=== PATIENT | male | born 1930 | race Caucasian/White ===

== ENCOUNTER 2016-10-13 07:13 | Outpatient (CLI) | payer MEDICARE ==
[2016-10-13 07:59] LABS: #Basophils 0.1 thou/uL (0.0-0.2); #Eosinphils 0.1 thou/uL (0.0-0.7); #Lymphocytes 1.4 thou/uL (1.20-3.40); #Monocytes 0.5 thou/uL (0.11-0.59); %Basophils 1.5 % (0.0-1.0); %Eosinophils 1.8 % (0.0-10.0); %Lymphocytes 23.1 % (21.0-51.0); %Monocytes 7.8 % (0.0-10.0); %Neutrophils 65.9 % (42.0-75.0); Hemoglobin 13.8 g/dL (14.0-18.0); Mean Corpuscular HGB CONC 33.6 g/dL (32.0-36.0); Mean Corpuscular Hemoglobin 28.5 pg (27.0-31.0); Mean Corpuscular Volume 84.8 fl (80.0-94.0); Mean Platelet Volume 7.9 fL (7.4-10.4); Platelet Count 217 thou/uL (130-400); RBC Distribution Width 13.9 % (11.5-14.5); Red Blood Cell (RBC) Count 4.83 mill/uL (4.70-6.10)
[2016-10-13 09:00] LABS: Hemoglobin A1c 5.9 % (4.0-6.0)
[2016-10-13 09:14] LABS: ALT (SGPT) 13 U/L (0-55); AST (SGOT) 17 U/L (5-34); Albumin 3.9 g/dL (3.4-4.8); Alkaline Phosphatase 82 U/L (40-150); Anion Gap 16 mmol/L (10-20); BUN (Urea Nitrogen) 24 mg/dL (8.4-25.7); Bilirubin, Direct 0.4 mg/dL (0.1-0.3); Calc. Creatinine Clearance 0 mL/min (70-130); Calcium 9.2 mg/dL (7.8-10.44); Carbon Dioxide 28 mmol/L (23-31); Cardiac Risk 2.8 (Less than 4.5); Chloride 101 mmol/L (98-107); Cholesterol 111 mg/dL (< 200 Desired); Estimated GFR-MDRD 50; Glucose 118 mg/dL (83-110); HDL Cholesterol 39 mg/dL (>60 Neg Risk); LDL Cholesterol, Calculated 50 mg/dL; Potassium 3.7 mmol/L (3.5-5.1); Protein, Total 6.7 g/dL (5.8-8.1); Sodium 141 mmol/L (136-145); Triglycerides 108 mg/dL (Less than 150)
[2016-10-13 18:35] LABS: Creatinine, Urine 47.15 mg/dL (63-166); Microalbumin Urine 38.8 mg/dL (0.5-50.0); Microalbumin/Creat Ratio 822.9 mg/g (Less than 30)
== END 2016-10-13 07:14 ==
LOC: MADLABBHPM 07:13
PROVIDERS: ATTEND Family Medicine
DX: E78.5 Hyperlipidemia, unspecified (principal); E11.22 Type 2 diabetes mellitus with diabetic chronic kidney disease; N18.9 Chronic kidney disease, unspecified
CPT/HCPCS: 36415; 80048; 80061; 80076; 82043; 82570; 83036; 85025

== ENCOUNTER 2017-01-07 08:24 | Outpatient (CLI) | payer MEDICARE ==
[2017-01-07 08:57] LABS: Hemoglobin A1c 5.9 % (4.0-6.0)
[2017-01-07 09:00] LABS: #Basophils 0.1 thou/uL (0.0-0.2); #Eosinphils 0.2 thou/uL (0.0-0.7); #Lymphocytes 1.6 thou/uL (1.20-3.40); #Monocytes 0.5 thou/uL (0.11-0.59); #Neutrophils 4.9 thou/uL (1.40-6.50); %Basophils 1.3 % (0.0-1.0); %Eosinophils 2.4 % (0.0-10.0); %Lymphocytes 21.7 % (21.0-51.0); %Monocytes 6.6 % (0.0-10.0); %Neutrophils 67.9 % (42.0-75.0); Hemoglobin 13.5 g/dL (14.0-18.0); Mean Corpuscular HGB CONC 32.8 g/dL (32.0-36.0); Mean Corpuscular Hemoglobin 28.2 pg (27.0-31.0); Mean Platelet Volume 7.5 fL (7.4-10.4); Platelet Count 192 thou/uL (130-400); Red Blood Cell (RBC) Count 4.79 mill/uL (4.70-6.10); White Blood Cell (WBC) Count 7.2 thou/uL (4.8-10.8)
[2017-01-07 09:36] LABS: ALT (SGPT) 13 U/L (0-55); AST (SGOT) 15 U/L (5-34); Albumin 3.9 g/dL (3.4-4.8); Alkaline Phosphatase 84 U/L (40-150); Anion Gap 15 mmol/L (10-20); BUN (Urea Nitrogen) 21 mg/dL (8.4-25.7); Bilirubin, Direct 0.4 mg/dL (0.1-0.3); Bilirubin, Total 1.1 mg/dL (0.2-1.2); Calc. Creatinine Clearance 0 mL/min (70-130); Carbon Dioxide 24 mmol/L (23-31); Cardiac Risk 2.6 (Less than 4.5); Chloride 105 mmol/L (98-107); Cholesterol 97 mg/dL (< 200 Desired); Estimated GFR-MDRD 46; Glucose 99 mg/dL (83-110); HDL Cholesterol 38 mg/dL (>60 Neg Risk); LDL Cholesterol, Calculated 41 mg/dL; Potassium 3.5 mmol/L (3.5-5.1); Protein, Total 6.6 g/dL (5.8-8.1); Sodium 140 mmol/L (136-145); Triglycerides 90 mg/dL (Less than 150)
== END 2017-01-07 08:25 ==
LOC: MADLABBHPM 08:24
PROVIDERS: ATTEND Family Medicine
DX: E78.5 Hyperlipidemia, unspecified (principal); E03.9 Hypothyroidism, unspecified; E11.9 Type 2 diabetes mellitus without complications; I25.10 Atherosclerotic heart disease of native coronary artery without angina pectoris
CPT/HCPCS: 36415; 80048; 80061; 80076; 83036; 84443; 85025

== ENCOUNTER 2017-04-08 08:49 | Outpatient (CLI) | payer MEDICARE ==
[2017-04-08 14:19] LABS: Hemoglobin 13.5 g/dL (14.0-18.0); Mean Corpuscular HGB CONC 32.4 g/dL (32.0-36.0); Mean Corpuscular Hemoglobin 28.4 pg (27.0-31.0); Mean Corpuscular Volume 87.6 fL (80.0-94.0); Platelet Count 210 thou/uL (130-400); RBC Distribution Width 13.4 % (11.5-14.5); Red Blood Cell (RBC) Count 4.75 mill/uL (4.70-6.10); White Blood Cell (WBC) Count 7.5 thou/uL (4.8-10.8)
[2017-04-08 14:20] LABS: %Eosinophils 1.8 % (0.0-10.0); %Lymphocytes 21.3 % (21.0-51.0); %Monocytes 6.9 % (0.0-10.0); %Neutrophils 68.9 % (42.0-75.0); Mean Platelet Volume 7.9 fL (7.4-10.4)
[2017-04-08 14:21] LABS: %Basophils 1.2 % (0.0-1.0)
[2017-04-08 14:22] LABS: Hemoglobin A1c 5.9 % (4.0-6.0)
[2017-04-08 14:23] LABS: Anion Gap 14 mmol/L (10-20); BUN (Urea Nitrogen) 22 mg/dL (8.4-25.7); Carbon Dioxide 26 mmol/L (23-31); Chloride 104 mmol/L (98-107); Potassium 3.7 mmol/L (3.5-5.1); Sodium 140 mmol/L (136-145)
[2017-04-08 14:24] LABS: Albumin 3.8 g/dL (3.4-4.8); Bilirubin, Direct 0.4 mg/dL (0.1-0.3); Calc. Creatinine Clearance 0 mL/min (70-130); Calcium 9.2 mg/dL (7.8-10.44); Estimated GFR-MDRD 41; Glucose 118 mg/dL (83-110)
[2017-04-08 14:25] LABS: Alkaline Phosphatase 84 U/L (40-150); Cholesterol 110 mg/dL (< 200 Desired)
[2017-04-08 14:26] LABS: ALT (SGPT) 13 U/L (8-55); AST (SGOT) 16 U/L (5-34); Cardiac Risk 3.1 (Less than 4.5); HDL Cholesterol 35 mg/dL (>60 Neg Risk); LDL Cholesterol, Calculated 52 mg/dL; Triglycerides 113 mg/dL (Less than 150)
== END 2017-04-08 08:50 | disposition home or self-care (01) ==
LOC: MADLABBHPM 08:49
PROVIDERS: ATTEND Family Medicine
DX: E11.9 Type 2 diabetes mellitus without complications (principal); E78.5 Hyperlipidemia, unspecified
CPT/HCPCS: 36415; 80048; 80061; 80076; 83036; 85025

== ENCOUNTER 2017-04-16 14:38 | Outpatient (CLI) | payer MEDICARE ==
[2017-04-17 17:00] LABS: Iron 49 ug/dL (65-175); Iron Binding Capacity, Total 264 mcg/dL (261-462)
== END 2017-04-16 14:39 | disposition home or self-care (01) ==
LOC: MADLABBHPM 14:38
PROVIDERS: ATTEND Family Medicine
DX: Z83.49 Family history of other endocrine, nutritional and metabolic diseases (principal)
CPT/HCPCS: 36415; 82728; 83540; 83550

== ENCOUNTER 2018-03-29 14:10 | Inpatient (IN) | payer MEDICARE ==
[2018-03-29] MEDS ORDERED: Acetaminophen 325 MG TAB PO PRN (17:37)
[2018-03-29] MEDS ORDERED: HumaLOG 300 UNITS/3 ML VIAL SC PRN (17:44)
[2018-03-29] MEDS ORDERED: Dextrose 50% Abboject 50 ML SYRINGE IVP PRN (18:03)
[2018-03-29] MEDS ORDERED: Dextrose 5% in Water 1,000 ML IV PRN (18:03)
[2018-03-29] MEDS: Carbidopa/Levodopa 25-100 mg Tablet PO SCH (20:52)
[2018-03-29] MEDS: hydrALAZINE 25 MG TAB PO SCH (20:53)
[2018-03-29] MEDS: Isosorbide Mononitrate 20 MG TAB PO SCH (20:54)
[2018-03-29] MEDS: Carvedilol 6.25 MG TAB PO SCH (20:55)
[2018-03-29] MEDS: Simvastatin 20 MG TAB PO SCH (20:55)
[2018-03-29] MEDS: cloNIDine 0.1 MG TAB PO SCH (20:56)
--- NOTE | 2018-03-30 00:52 | HP ---
DATE OF ADMISSION: Admitted to [facility] to extended care on 03/29/2018. HISTORY OF PRESENT ILLNESS: The patient is an 88-year-old white male, who has a history of hypertens ion, coronary artery disease, diastolic dysfunction, Parkinson's disease, and dementia. Also, he has hypothyroidism; diabetes, type 2; and chronic kidney disease, stage 3. Patient resides at home with his . He nearly is ambulatory for short distances and is able to feed himself, requires some as sistance with dressing and bathing. The patient was hospitalized at [facility] from 03/22 until 03/29/2018 for acute on chronic diastolic congestive heart failure. He had evidence of s ome demand ischemia, but no evidence of acute myocardial infarction. He was treated with diuresis wi th an admission weight of 167, dropped into a discharge weight of 155. He was placed on 2 grams sodi um salt restricted diet and fluid intake less than 1-1/2 liters per day. While in the hospital, he u nderwent an echocardiogram, which showed an ejection fraction 45%-50% with posterior hypokinesis. Hi s inferior vena cava was dilated showing evidence of overload. He had diastolic dysfunction. He had [id number] mitral regurgitation, mild enlargement of the right atrium, [id number] aortic regurgitation, severe tricuspid regurgitation. While in the hospital, his code status was changed t o a full code to DNR. He did improve, but he was left extremely weak, as he has been up very limited , and he was not allowed up without assistance due to a fall risk. The patient was transferred to [facility] to extended care for physical therapy and occupational therapy to try to help his decl ine in functional capabilities with this recent acute hospitalization to help improve his functional capabilities. The patient was not able to give any details of the admission due to his advanced dementia. His , who has been staying with him w as a very good historian and was able to review with me what had occurred. She said he was admitted to the hospital acutely short of breath with swelling up to the hips. This has improved and his lisa thing has been better. The patient thinks he is doing good. He is just weak. PAST HISTORY: Hospitalized at [facility] from 03/22/2018 to 03/29/2018 for acute on chron ic diastolic congestive heart failure with restrictive filling pattern, treated with diuresis, fluid restriction, and salt-restricted diet. The patient has coronary artery disease, for which he underwe nt a 2-vessel coronary artery bypass in 2012. He has paroxysmal atrial fibrillation; hypertension; h ypothyroidism; hyperlipidemia; diabetes, type 2; chronic kidney disease, stage 3; chronic diastolic h eart failure; Alzheimer's dementia with some behavioral issues. The patient also had a skin cancer r emoved from the right frontal area of his scalp, but was healing by secondary intention, and it was r ecently reddened, for which he has been taking cephalexin. The patient has also a history of diverti culosis. He has had polyps removed in 2010. He has diverticulosis. PRESENT MEDICINES: Hydralazine 25 mg 3 tablets t.i.d., amlodipine 5 mg daily, aspirin 81 mg daily, S inemet 25/100 one q.i.d., Coreg 6.25 mg b.i.d., clonidine 0.25 mg b.i.d., furosemide 40 mg daily, Hum alog by sliding scale before meals, Isordil 40 mg b.i.d., levothyroxine 100 mcg daily, KCl 10 mEq amol ly, Simvastatin 10 mg at bedtime. ALLERGIES: CELEXA; METFORMIN causes diarrhea; ARICEPT, diarrhea; NAMENDA, loss of appetite and behav ioral problems, and EXELON, diarrhea. REVIEW OF SYSTEMS: Constitutional: Patient has lost about 7 pounds over the week from diuresis with removal of much of the edema in the lower extremities. Patient has had no fever. Pulmonary: Patie rickey does not have any more trouble with his breathing. Cardiovascular: No chest pain. Gastrointesti nal: Appetite has been good. He has had no nausea or vomiting. No change in his bowel habits. Gen itourinary: No dysuria. Extremities: The swelling in the legs are better, but not resolved. Neuro psychiatric: The patient has very poor short-term memory, had problems with orientation at times, ca n be a little disinhibited, and a little agitated, but right now this is pretty stable. HABITS: Alcohol none. Tobacco none. SOCIAL HISTORY: Patient lives with his , who assists him with his ADLs and instrumental ADLs. CODE STATUS: DNR. PHYSICAL EXAMINATION: GENERAL: Shows an 88-year-old white male, who is sitting up in a bedside chair. He is alert, smilin g, looks very comfortable. He is wearing knee-high support hose. He appears in no distress. VITAL SIGNS: Shows a temperature of 96.3, O2 saturation 97% on room air, blood pressure 180/87, hear t rate 64, respirations 21, weight 166.5. HEAD: Normocephalic. Over the scalp on the right frontal area, there is an oval area that is about 1.5 x 1 cm. There is a little slight surrounding redness that is healing by secondary intention, for which he is on cephalexin. EARS: TMs are clear. EYES: Pupils are equal, round, and reactive. Sclerae nonicteric. Extraocular musculature is intact . NOSE: Normal. MOUTH AND THROAT: Normal. NECK: Carotids were equal and strong, no bruits. LUNGS: Clear. HEART: Regular rate. Could not hear any murmurs. ABDOMEN: Soft, no organomegaly, nor areas of tenderness. LOWER EXTREMITIES: Patient has 1+ edema in the lower legs. NEUROLOGIC: Patient is alert, knows he is in the hospital, and recognizes me. He does not understan d his situation. The patient has some generalized weakness, but no focal weakness. IMPRESSION: 1. Generalized weakness and deconditioning. A. Secondary to the recent acute hospitalization for congestive heart failure. B. Complicated by gait abnormality from the Parkinson's. C. Increased fall risk. 2. Hospitalized at [facility] from 03/22/2018 until 03/29/2018 for acute on chronic diast olic congestive heart failure. 3. Diastolic congestive heart failure. A. Complicated by recent acute on chronic congestive failure, requiring hospitalization that has imp roved. B. Echocardiogram shows ejection fraction of 45%-50% with severe tricuspid regurgitation and moderat e mitral regurgitation and some restrictive filling with diastolic dysfunction. 4. Chronic right heart failure. A. Complicated by severe tricuspid regurgitation and peripheral edema that has improved. 5. Diabetes, type 2. 6. Hypertension. 7. Coronary artery disease, status post coronary artery bypass x2, 2013. 8. Parkinson's disease. 9. Alzheimer disease. 10. Chronic kidney disease, stage 3. 11. Chronic normocytic anemia. 12. Hypothyroidism. 13. Severe hypertension. 14. Hyperlipidemia. 15. Code status: DNR. PLAN: The patient has been admitted to extended care in an effort to try to improve his weakness and deconditioning. We will continue his fluid restriction and low-sodium diet and his same medication. We will continue the DVT prophylaxis. See orders.
[2018-03-30] MEDS: Levothyroxine Sodium 100 MCG TAB PO SCH (05:41)
[2018-03-30 06:06] LABS: #Basophils 0.1 thou/uL (0.0-0.2); #Eosinphils 0.1 thou/uL (0.0-0.7); #Lymphocytes 1.5 thou/uL (1.20-3.40); #Monocytes 0.6 thou/uL (0.11-0.59); #Neutrophils 4.3 thou/uL (1.40-6.50); %Basophils 1.1 % (0.0-1.0); %Eosinophils 1.4 % (0.0-10.0); %Lymphocytes 22.8 % (21.0-51.0); %Monocytes 9.7 % (0.0-10.0); %Neutrophils 65.1 % (42.0-75.0); Hemoglobin 10.2 g/dL (14.0-18.0); Mean Corpuscular HGB CONC 33.1 g/dL (32.0-36.0); Mean Corpuscular Hemoglobin 27.4 pg (27.0-31.0); Mean Corpuscular Volume 82.7 fL (78.0-98.0); Mean Platelet Volume 6.3 fL (7.4-10.4); Platelet Count 191 thou/uL (130-400); RBC Distribution Width 14.2 % (11.5-14.5); Red Blood Cell (RBC) Count 3.74 mill/uL (4.70-6.10); White Blood Cell (WBC) Count 6.7 thou/uL (4.8-10.8)
[2018-03-30 06:14] LABS: AST (SGOT) 17 U/L (5-34); Albumin 3.3 g/dL (3.4-4.8); Alkaline Phosphatase 59 U/L (40-150); Anion Gap 16 mmol/L (10-20); BUN (Urea Nitrogen) 36 mg/dL (8.4-25.7); Bilirubin, Total 1.2 mg/dL (0.2-1.2); Calc. Creatinine Clearance 26 mL/min (70-130); Calcium 8.5 mg/dL (7.8-10.44); Carbon Dioxide 23 mmol/L (23-31); Chloride 103 mmol/L (98-107); Estimated GFR-MDRD 32; Glucose 118 mg/dL (83-110); Potassium 3.9 mmol/L (3.5-5.1); Sodium 138 mmol/L (136-145)
[2018-03-30 06:18] LABS: ALT (SGPT) Less than 7 U/L (8-55); Globulin 2.5 g/dL (2.4-3.5); Protein, Total 5.8 g/dL (5.8-8.1)
[2018-03-30] MEDS: hydrALAZINE 25 MG TAB PO SCH ×3 (08:22→20:57)
[2018-03-30] MEDS: Carvedilol 6.25 MG TAB PO SCH ×2 (08:24→20:58)
[2018-03-30] MEDS: Potassium Chloride 20 MEQ TAB PO SCH (08:24)
[2018-03-30] MEDS: Amlodipine 5 MG TAB PO SCH (08:24)
[2018-03-30] MEDS: Aspirin 81 mg Enteric Coated Tablet PO SCH (08:24)
[2018-03-30] MEDS: Carbidopa/Levodopa 25-100 mg Tablet PO SCH ×4 (08:24→20:57)
[2018-03-30] MEDS: Furosemide 40 MG TAB PO SCH (08:24)
[2018-03-30] MEDS: Isosorbide Mononitrate 20 MG TAB PO SCH ×2 (08:24→20:59)
[2018-03-30] MEDS: cloNIDine 0.1 MG TAB PO SCH ×2 (08:25→20:59)
[2018-03-30] MEDS: Enoxaparin Sodium 40 MG/0.4 ML SYRINGE SC SCH (08:30)
[2018-03-30] MEDS: Cephalexin 500 MG CAP PO SCH ×2 (08:33→20:57)
[2018-03-30] MEDS: HumaLOG 300 UNITS/3 ML VIAL SC PRN (11:26)
[2018-03-30] MEDS ORDERED: Lantiseptic Ointment 130 GM JAR TOP PRN (12:32)
[2018-03-30 12:34] LABS: Hemoglobin A1c 6.2 % (4.0-6.0)
[2018-03-30] MEDS: Loperamide HCl 2 MG CAP PO PRN (12:48)
--- NOTE | 2018-03-30 17:05 | PRG ---
DATE OF SERVICE: 03/30/2018 SUBJECTIVE: The patient's who is staying with her said that he had a good night. When he would roll over in bed he would set off the bed alarm, but he usually settled down pretty quickly. She said without this he may try to get up on his own. The patient's said the spot on his hea d where the skin cancers were removed looks better. He has been placed on cephalexin 500 mg twice a day, that was started on the and was supposed to go for 10 days. This will need to be reordered for an additional 5 days. Overall, she thinks it looks better. OBJECTIVE: The patient is sitting on the edge of the bed. He, after the visit, got up and walked wi th a short little shuffling gait with the use of his walker with standby assistance from the therapis t. This morning his vital signs show a temperature of 98.5, pulse 68, respirations 22, O2 sat 92% on room air, blood pressure has improved at 157/75 this morning. He is alert and appears in no distres s. His skin on the right frontal area of his scalp, there is the oval area where the skin cancer was removed. The base is dry and is kind of yellowish. There is very slight redness around the wound, but overall it looks better and dryer. His lungs were clear. Heart, regular rate. Lower extremitie s; no edema. His lab shows an H&H of 10.2 and 30.9, white cell count 6700 with 65% segs, 23% lymphocytes, platelet count of 191,000. Sodium 138, potassium 3.9, BUN 36, creatinine 2.01. GFR 32, glucose 118, albumin 3.3. TSH is 2.43. FBS this morning 118. ASSESSMENT: 1. Generalized weakness and deconditioning. A. Secondary to the recent acute hospitalization for congestive heart failure. B. Complicated by gait abnormality from the Parkinson's. C. Increased fall risk. D. Improved as of 03/30/2018. 2. Hospitalized at [facility] from 03/22/2018 until 03/29/2018 for acute on chronic diast olic congestive heart failure. 3. Diastolic congestive heart failure. A. Complicated by recent acute on chronic congestive failure, requiring hospitalization that has imp roved. B. Echocardiogram shows ejection fraction of 45%-50% with severe tricuspid regurgitation and moderat e mitral regurgitation and some restrictive filling with diastolic dysfunction. C. No evidence of acute congestive heart failure as of 03/30/2018. 4. Chronic right heart failure. A. Complicated by severe tricuspid regurgitation and peripheral edema that has improved. B. Peripheral edema improved as of 03/30/2018. 5. Diabetes, type 2. A. Controlled as of 03/30/2018. 6. Hypertension. A. Improved as of 03/30/2018. 7. Coronary artery disease, status post coronary artery bypass x2, 2012. 8. Parkinson's disease. 9. Alzheimer disease. 10. Chronic kidney disease, stage 3. A. GFR is stable at 33 as of 03/30/2018. 11. Chronic normocytic anemia. A. Hemoglobin 10.2 as of 03/30/2018. 12. Hypothyroidism. 13. Severe hypertension. 14. Hyperlipidemia. 15. Code status: DNR. 16. Status post excision of a skin cancer on the right frontal area of the scalp in early 02/28/2018 . A. Gradually healing. Recently complicated by infection that is improved. PLAN: Continue present care. Continue physical therapy. Will restart his cephalexin 500 mg b.i.d. for 5 days.
[2018-03-30] MEDS: Simvastatin 20 MG TAB PO SCH (20:58)
[2018-03-31] MEDS: Levothyroxine Sodium 100 MCG TAB PO SCH (05:25)
[2018-03-31] MEDS: Enoxaparin Sodium 40 MG/0.4 ML SYRINGE SC SCH (08:55)
[2018-03-31] MEDS: Furosemide 40 MG TAB PO SCH (08:56)
[2018-03-31] MEDS: hydrALAZINE 25 MG TAB PO SCH ×3 (08:56→20:38)
[2018-03-31] MEDS: Carbidopa/Levodopa 25-100 mg Tablet PO SCH ×4 (08:56→20:40)
[2018-03-31] MEDS: Aspirin 81 mg Enteric Coated Tablet PO SCH (08:56)
[2018-03-31] MEDS: Cephalexin 500 MG CAP PO SCH ×2 (08:57→20:42)
[2018-03-31] MEDS: Carvedilol 6.25 MG TAB PO SCH ×2 (08:57→20:47)
[2018-03-31] MEDS: cloNIDine 0.1 MG TAB PO SCH ×2 (08:57→20:41)
[2018-03-31] MEDS: Isosorbide Mononitrate 20 MG TAB PO SCH ×2 (08:57→20:41)
[2018-03-31] MEDS: Potassium Chloride 20 MEQ TAB PO SCH (08:57)
[2018-03-31] MEDS: Amlodipine 5 MG TAB PO SCH (08:58)
[2018-03-31] MEDS: HumaLOG 300 UNITS/3 ML VIAL SC PRN ×2 (11:35→17:19)
--- NOTE | 2018-03-31 15:26 | PRG ---
DATE OF SERVICE: 03/31/2018 SUBJECTIVE: The patient had a good night. He did well with physical therapy yesterday. The patient had been on a mechanical soft diet while at [facility]. He was switched to this. His wi fe says he does better on this because he has such poor dentition. He has eaten a good breakfast thi s morning. The patient has had no shortness of breath. He had a little loose stools yesterday for w hich he took Imodium which he uses at home. OBJECTIVE: The patient is sitting up in a bedside chair eating breakfast. He is alert, appears very comfortable and in no distress. His vital signs shows a temperature 97.6, pulse 61, respirations 22 , O2 sat 96% on room air, blood pressure 152/70. The skin over the right frontal area of the scalp, the area where the skin cancer had been removed is healing by secondary intention, looks dry and no s urrounding redness, gradually improving. His lungs were clear. Heart, regular rate. Extremities gonzales ve trace edema. His weight was 165, weight the day before was 157 scales have been rezeroed. We will see how tomorro w's look. It does not look like he has gained that amount of weight in a day, although he does have just a trace amount of edema. ASSESSMENT: 1. Generalized weakness and deconditioning. A. Secondary to the recent acute hospitalization for congestive heart failure. B. Complicated by gait abnormality from the Parkinson's. C. Increased fall risk. D. Improved as of 03/31/2018. 2. Hospitalized at [facility] from 03/22/2018 until 03/29/2018 for acute on chronic diast olic congestive heart failure. 3. Diastolic congestive heart failure. A. Complicated by recent acute on chronic congestive failure, requiring hospitalization that has imp roved. B. Echocardiogram shows ejection fraction of 45%-50% with severe tricuspid regurgitation and moderat e mitral regurgitation and some restrictive filling with diastolic dysfunction. C. No evidence of acute congestive heart failure as of 03/31/2018. 4. Chronic right heart failure. A. Complicated by severe tricuspid regurgitation and peripheral edema that has improved. B. Peripheral edema is just trace as of 03/31/2018. 5. Diabetes, type 2. A. Controlled as of 03/30/2018. 6. Hypertension. A. Improved as of 03/30/2018. 7. Coronary artery disease, status post coronary artery bypass x2, 2012. 8. Parkinson's disease. 9. Alzheimer disease. 10. Chronic kidney disease, stage 3. A. GFR is stable at 33 as of 03/30/2018. 11. Chronic normocytic anemia. A. Hemoglobin 10.2 as of 03/30/2018. 12. Hypothyroidism. 13. Severe hypertension. 14. Hyperlipidemia. 15. Code status: DNR. 16. Status post excision of a skin cancer on the right frontal area of the scalp in early 02/28/2018 . A. Gradually healing by secondary intention as of 03/31/2018. PLAN: Continue present care. Continue physical therapy.
[2018-03-31] MEDS: Loperamide HCl 2 MG CAP PO PRN (17:53)
[2018-03-31] MEDS: Simvastatin 20 MG TAB PO SCH (20:40)
[2018-03-31] MEDS: Lantiseptic Ointment 130 GM JAR TOP SCH (20:44)
[2018-04-01] MEDS: Levothyroxine Sodium 100 MCG TAB PO SCH (05:49)
[2018-04-01] MEDS: Cephalexin 500 MG CAP PO SCH ×2 (08:59→21:03)
[2018-04-01] MEDS: Isosorbide Mononitrate 20 MG TAB PO SCH ×2 (08:59→21:04)
[2018-04-01] MEDS: hydrALAZINE 25 MG TAB PO SCH ×3 (09:00→21:04)
[2018-04-01] MEDS: Amlodipine 5 MG TAB PO SCH (09:00)
[2018-04-01] MEDS: Potassium Chloride 20 MEQ TAB PO SCH (09:00)
[2018-04-01] MEDS: Carbidopa/Levodopa 25-100 mg Tablet PO SCH ×4 (09:01→21:03)
[2018-04-01] MEDS: Furosemide 40 MG TAB PO SCH (09:01)
[2018-04-01] MEDS: Aspirin 81 mg Enteric Coated Tablet PO SCH (09:01)
[2018-04-01] MEDS: cloNIDine 0.1 MG TAB PO SCH ×2 (09:01→21:04)
[2018-04-01] MEDS: Carvedilol 6.25 MG TAB PO SCH ×2 (09:01→21:03)
[2018-04-01] MEDS: Enoxaparin Sodium 40 MG/0.4 ML SYRINGE SC SCH (09:02)
[2018-04-01] MEDS: Lantiseptic Ointment 130 GM JAR TOP SCH ×2 (09:12→21:05)
--- NOTE | 2018-04-01 11:50 | PRG ---
DATE OF SERVICE: 04/01/2018 SUBJECTIVE: The patient has been doing good. He is doing better with his transfers and seemed a lit tle bit more stable. He is walking further. Last night, he got up and went to the bathroom on his o wn without any falls. He has had no shortness of breath. He is having just still a little swelling in his legs. OBJECTIVE: The patient is standing at the sink, having just washed his face. He is alert, looks leann y comfortable and in no distress. Physical therapist was with him. His vital signs show a temperatu re 97, pulse 87, respirations 20, O2 saturation 94% on room air, blood pressure 127/71. His weight i s stable at 165. His lungs are clear. Heart, regular rate. Extremities, 1+ edema of the ankles. LABORATORY DATA: His FBS have been 122, before lunch was 235. His hemoglobin A1c was 6.2, done on 0 03/30/2018. He has only required an occasional dose of the Humalog. At home, he was on low dose of m etformin, but this has been stopped due to the decline in his renal function. ASSESSMENT: 1. Generalized weakness and deconditioning. A. Secondary to the recent acute hospitalization for congestive heart failure. B. Complicated by gait abnormality from the Parkinson's. C. Increased fall risk. D. Improved as of 04/01/2018. 2. Hospitalized at [facility] from 03/22/2018 until 03/29/2018 for acute on chronic diast olic congestive heart failure. 3. Diastolic congestive heart failure. A. Complicated by recent acute on chronic congestive failure, requiring hospitalization that has imp roved. B. Echocardiogram shows ejection fraction of 45%-50% with severe tricuspid regurgitation and moderat e mitral regurgitation and some restrictive filling with diastolic dysfunction. C. No evidence of acute congestive heart failure as of 04/01/2018. 4. Chronic right heart failure. A. Complicated by severe tricuspid regurgitation and peripheral edema that has improved. B. Peripheral edema is 1+ in the lower extremities and weight stable at 165 as of 04/01/2018. 5. Diabetes, type 2. A. Controlled with a hemoglobin A1c of 6.2. 6. Hypertension. A. Controlled as of 04/01/2018. 7. Coronary artery disease, status post coronary artery bypass x2, 2013. 8. Parkinson's disease. 9. Alzheimer disease. 10. Chronic kidney disease, stage 3. A. GFR is stable at 33 as of 03/30/2018. 11. Chronic normocytic anemia. A. Hemoglobin 10.2 as of 03/30/2018. 12. Hypothyroidism. 14. Hyperlipidemia. 15. Code status: DNR. 16. Status post excision of a skin cancer on the right frontal area of the scalp in early 02/28/2018 . A. Gradually healing by secondary intention as of 04/01/2018. PLAN: Continue present care. Continue physical therapy.
[2018-04-01] MEDS: HumaLOG 300 UNITS/3 ML VIAL SC PRN ×2 (12:13→17:28)
[2018-04-01] MEDS: Simvastatin 20 MG TAB PO SCH (21:04)
[2018-04-02] MEDS: Levothyroxine Sodium 100 MCG TAB PO SCH (05:50)
[2018-04-02] MEDS: Carvedilol 6.25 MG TAB PO SCH ×2 (09:02→20:54)
[2018-04-02] MEDS: Isosorbide Mononitrate 20 MG TAB PO SCH ×2 (09:02→20:52)
[2018-04-02] MEDS: hydrALAZINE 25 MG TAB PO SCH ×3 (09:02→20:53)
[2018-04-02] MEDS: cloNIDine 0.1 MG TAB PO SCH ×2 (09:02→20:54)
[2018-04-02] MEDS: Carbidopa/Levodopa 25-100 mg Tablet PO SCH ×2 (09:02→20:53)
[2018-04-02] MEDS: Cephalexin 500 MG CAP PO SCH ×2 (09:02→20:53)
[2018-04-02] MEDS: Potassium Chloride 20 MEQ TAB PO SCH (09:02)
[2018-04-02] MEDS: Furosemide 40 MG TAB PO SCH ×2 (09:03→14:26)
[2018-04-02] MEDS: Aspirin 81 mg Enteric Coated Tablet PO SCH (09:03)
[2018-04-02] MEDS: Enoxaparin Sodium 40 MG/0.4 ML SYRINGE SC SCH (09:03)
[2018-04-02] MEDS: Amlodipine 5 MG TAB PO SCH (09:03)
--- NOTE | 2018-04-02 13:47 | PRG ---
DATE OF SERVICE: 04/02/2018 SUBJECTIVE: The patient has no complaints this morning. Nurses have noticed that he is having incre ased swelling in his legs. The patient has not been short of breath. The patient's is worried about potential side effects from the Sinemet. She does not really think that there has been any coral or help since he has been on the medication, but she has noticed that after taking the medicine he sl eeps, very less interactive for several hours and then when it wears off he is ribbed up. She is myriam lly not sure that it has had any extra help to his management. She said he has periods where he is j ust less interactive and does not know if this may be medication or just a progression of his underly ing illness. He is lactose intolerant and at home he does have a lactase tablets that he uses on occ asion in the event that he may get some lactose in his food. OBJECTIVE: The patient is sitting up in a bedside chair. He is alert and appears in no acute distre ss. His vital signs show temperature 97.7, pulse 69, respirations 18, O2 sat 94% on room air, blood pressure 158/72. His lungs were clear. Heart, regular rate. Extremities; 2+ edema in the lower leg s and feet. His FBS this morning was 130. ASSESSMENT: 1. Generalized weakness and deconditioning. A. Secondary to the recent acute hospitalization for congestive heart failure. B. Complicated by gait abnormality from the Parkinson's. C. Increased fall risk. D. Improved as of 04/02/2018. 2. Hospitalized at [facility] from 03/22/2018 until 03/29/2018 for acute on chronic diast olic congestive heart failure. 3. Diastolic congestive heart failure. A. Complicated by recent acute on chronic congestive failure, requiring hospitalization that has imp roved. B. Echocardiogram shows ejection fraction of 45%-50% with severe tricuspid regurgitation and moderat e mitral regurgitation and some restrictive filling with diastolic dysfunction. C. No evidence of acute congestive heart failure as of 04/02/2018. 4. Chronic right heart failure. A. Complicated by severe tricuspid regurgitation and peripheral edema that has improved. B. Gradual increase in the peripheral edema where it is now 2+, but weight is down to 160 as of 03/15. 5. Diabetes, type 2. A. Controlled with a hemoglobin A1c of 6.2. 6. Hypertension. A. Controlled as of 04/02/2018. 7. Coronary artery disease, status post coronary artery bypass x2, 2012. 8. Parkinson's disease. A. is concerned that the Sinemet may be causing increased sleepiness and decreased interactiven ess as of 04/02/2018. 9. Alzheimer disease. 10. Chronic kidney disease, stage 3. A. GFR is stable at 33 as of 03/30/2018. 11. Chronic normocytic anemia. A. Hemoglobin 10.2 as of 03/30/2018. 12. Hypothyroidism. 14. Hyperlipidemia. 15. Code status: DNR. 16. Status post excision of a skin cancer on the right frontal area of the scalp in early 02/28/2018 . A. Gradually healing by secondary intention as of 04/02/2018. PLAN: The patient is gradual accumulating more fluid in his legs, but chest seems clear. We will gonzales ve patient wear his knee high support hose when he is out of bed. We will increase the Lasix to 40 m g b.i.d. We will try cutting back on the Sinemet 25/100 from 4 times a day to 1 twice a day, receivin g 1 30 minutes before breakfast and one 30 minutes before supper. If he has increased symptoms from his Parkinson's we will go back on the medicine, if he is improving with no deterioration of the Park inson system, we will consider stopping this after a few days. We will try the patient on Januvia 25 mg daily and stop his sliding scale.
[2018-04-02] MEDS: Lantiseptic Ointment 130 GM JAR TOP SCH ×2 (14:26→20:54)
[2018-04-02] MEDS ORDERED: Carbidopa/Levodopa 25-100 mg Tablet PO SCH (16:30)
[2018-04-02] MEDS: Simvastatin 20 MG TAB PO SCH (20:53)
[2018-04-03] MEDS: Levothyroxine Sodium 100 MCG TAB PO SCH (05:25)
[2018-04-03] MEDS: hydrALAZINE 25 MG TAB PO SCH ×3 (08:23→20:52)
[2018-04-03] MEDS: Aspirin 81 mg Enteric Coated Tablet PO SCH (08:23)
[2018-04-03] MEDS: Cephalexin 500 MG CAP PO SCH ×2 (08:23→20:53)
[2018-04-03] MEDS: cloNIDine 0.1 MG TAB PO SCH ×2 (08:23→20:52)
[2018-04-03] MEDS: Carvedilol 6.25 MG TAB PO SCH ×2 (08:23→20:51)
[2018-04-03] MEDS: Amlodipine 5 MG TAB PO SCH (08:24)
[2018-04-03] MEDS: Furosemide 40 MG TAB PO SCH ×2 (08:24→14:27)
[2018-04-03] MEDS: Carbidopa/Levodopa 25-100 mg Tablet PO SCH ×2 (08:24→20:50)
[2018-04-03] MEDS: Isosorbide Mononitrate 20 MG TAB PO SCH ×2 (08:25→20:54)
[2018-04-03] MEDS: Potassium Chloride 20 MEQ TAB PO SCH (08:25)
[2018-04-03] MEDS: Enoxaparin Sodium 40 MG/0.4 ML SYRINGE SC SCH (08:26)
[2018-04-03] MEDS ORDERED: Alogliptin 6.25 MG TAB PO SCH (09:00)
[2018-04-03] MEDS: Alogliptin 25 MG TAB PO SCH (09:25)
[2018-04-03] MEDS: Lantiseptic Ointment 130 GM JAR TOP SCH ×2 (09:39→20:55)
[2018-04-03] MEDS: Simvastatin 20 MG TAB PO SCH (20:50)
[2018-04-04] MEDS: Levothyroxine Sodium 100 MCG TAB PO SCH (06:16)
[2018-04-04] MEDS: Alogliptin 25 MG TAB PO SCH (08:37)
[2018-04-04] MEDS: Enoxaparin Sodium 40 MG/0.4 ML SYRINGE SC SCH (08:37)
[2018-04-04] MEDS: hydrALAZINE 25 MG TAB PO SCH ×3 (08:38→21:04)
[2018-04-04] MEDS: Isosorbide Mononitrate 20 MG TAB PO SCH ×2 (08:38→21:03)
[2018-04-04] MEDS: Cephalexin 500 MG CAP PO SCH (08:39)
[2018-04-04] MEDS: Furosemide 40 MG TAB PO SCH ×2 (08:39→14:08)
[2018-04-04] MEDS: Carbidopa/Levodopa 25-100 mg Tablet PO SCH ×2 (08:39→21:03)
[2018-04-04] MEDS: Potassium Chloride 20 MEQ TAB PO SCH (08:39)
[2018-04-04] MEDS: Carvedilol 6.25 MG TAB PO SCH ×2 (08:39→21:03)
[2018-04-04] MEDS: Amlodipine 5 MG TAB PO SCH (08:39)
[2018-04-04] MEDS: cloNIDine 0.1 MG TAB PO SCH ×2 (08:39→21:04)
[2018-04-04] MEDS: Aspirin 81 mg Enteric Coated Tablet PO SCH (08:39)
[2018-04-04] MEDS: Lantiseptic Ointment 130 GM JAR TOP SCH ×2 (08:46→21:05)
--- NOTE | 2018-04-04 11:02 | PRG ---
DATE OF SERVICE: 04/03/2018 SUBJECTIVE: The patient said he is doing better. He has not had any complaints this morning. His a ppetite has been good. His is staying with him and said he always sleeps good after he takes th e Sinemet. He asked that last dose of Sinemet be given at bedtime instead of suppertime. This herbert e was made and she said he slept about 4.5 hours, then he is awake and alert after this. He is eatin g good. He has had no breathing problem. The swelling in his legs may be a little better. OBJECTIVE: GENERAL: The patient is sitting up in a lounge chair with his feet elevated. He looks very comforta ble. He is awake, has no complaints. VITAL SIGNS: Shows a temperature 98.2, pulse 63, blood pressure was a little elevated this morning, it was 172/77, earlier it was 144/66. The server systems administrator reading was before he had his blood pressure medication. His weight today was 164.8, yesterday was 160 and the day before 165. I suspect the 16 0 was not accurate. LUNGS: Clear. HEART: Has a regular rate. EXTREMITIES: 1+ edema that was . He is wearing his knee high support hose. SKIN: The ulcer on the forehead is where the skin cancer was removed. It is healing by secondary in tention. There is no redness. He is doing very well. LABORATORY DATA: FBS this morning was 157. ASSESSMENT: 1. Generalized weakness and deconditioning. A. Secondary to the recent acute hospitalization for congestive heart failure. B. Complicated by gait abnormality from the Parkinson's. C. Increased fall risk. D. Improved as of 04/03/2018. 2. Hospitalized at [facility] from 03/22/2018 until 03/29/2018 for acute on chronic diast olic congestive heart failure. 3. Diastolic congestive heart failure. A. Complicated by recent acute on chronic congestive failure, requiring hospitalization that has imp roved. B. Echocardiogram shows ejection fraction of 45%-50% with severe tricuspid regurgitation and moderat e mitral regurgitation and some restrictive filling with diastolic dysfunction. C. No evidence of acute congestive heart failure as of 04/03/2018. 4. Chronic right heart failure. A. Complicated by severe tricuspid regurgitation and peripheral edema that has improved. B. Edema in the lower extremities a little better except 1+. His weight is 164.5 down to half a shirlene nd from his usual days. The reading 160 yesterday was probably an error. Overall, the edema is a li ttle better as of 04/03/2018. 5. Diabetes, type 2. A. Controlled with a hemoglobin A1c of 6.2. B. The patient has been started on oral medication, alogliptin and the sliding scale stopped on 03/15. 6. Hypertension. A. Controlled as of 04/02/2018. 7. Coronary artery disease, status post coronary artery bypass x2, 2012. 8. Parkinson's disease. A. Stable as of 04/03/2018. He is now on the Sinemet 1 in the morning, 1 at bedtime and rest well a fter he uses the Sinemet at night as of 04/03/2018. 9. Alzheimer disease. 10. Chronic kidney disease, stage 3. A. GFR is stable at 33 as of 03/30/2018. 11. Chronic normocytic anemia. A. Hemoglobin 10.2 as of 03/30/2018. 12. Hypothyroidism. 14. Hyperlipidemia. 15. Code status: DNR. 16. Status post excision of a skin cancer on the right frontal area of the scalp in early 02/28/2018 . A. Gradually healing by secondary intention as of 04/03/2018. PLAN: Continue present care. Continue physical therapy.
[2018-04-04] MEDS: Simvastatin 20 MG TAB PO SCH (21:04)
[2018-04-05] MEDS: Levothyroxine Sodium 100 MCG TAB PO SCH (05:13)
[2018-04-05 05:53] LABS: Anion Gap 16 mmol/L (10-20); BUN (Urea Nitrogen) 38 mg/dL (8.4-25.7); Calc. Creatinine Clearance 25 mL/min (70-130); Calcium 8.5 mg/dL (7.8-10.44); Carbon Dioxide 23 mmol/L (23-31); Chloride 103 mmol/L (98-107); Estimated GFR-MDRD 29; Glucose 132 mg/dL (83-110); Potassium 4.1 mmol/L (3.5-5.1); Sodium 138 mmol/L (136-145)
[2018-04-05] MEDS: Alogliptin 25 MG TAB PO SCH (08:10)
[2018-04-05] MEDS ORDERED: traZODone HCl 50 MG TAB PO PRN (08:10)
[2018-04-05] MEDS: Carbidopa/Levodopa 25-100 mg Tablet PO SCH ×2 (08:11→21:16)
[2018-04-05] MEDS: hydrALAZINE 25 MG TAB PO SCH ×3 (08:12→21:15)
[2018-04-05] MEDS: Isosorbide Mononitrate 20 MG TAB PO SCH ×2 (08:12→21:15)
[2018-04-05] MEDS: Potassium Chloride 20 MEQ TAB PO SCH (08:12)
[2018-04-05] MEDS: cloNIDine 0.1 MG TAB PO SCH ×2 (08:12→21:16)
[2018-04-05] MEDS: Aspirin 81 mg Enteric Coated Tablet PO SCH (08:13)
[2018-04-05] MEDS: Amlodipine 5 MG TAB PO SCH (08:13)
[2018-04-05] MEDS: Furosemide 40 MG TAB PO SCH ×2 (08:13→09:50)
[2018-04-05] MEDS: Enoxaparin Sodium 40 MG/0.4 ML SYRINGE SC SCH (08:14)
[2018-04-05] MEDS: Carvedilol 6.25 MG TAB PO SCH ×2 (08:14→21:15)
[2018-04-05] MEDS: Lantiseptic Ointment 130 GM JAR TOP SCH ×2 (08:15→21:16)
--- NOTE | 2018-04-05 09:13 | PRG ---
DATE OF SERVICE: 04/05/2018 SUBJECTIVE: The patient said that he is feeling alright. His said that he sleeps for about 4 h ours after he takes the Sinemet at bedtime. He is staying awake, a little better in the daytime sinc e the dose was reduced to just the twice a day. She says he wakes up about 1:30 and then he is up fo r the night. At home they had used the trazodone 25 mg as needed and it worked pretty well. Wondere d if he might to take could take that when he will reawakens at 1. He is still having some swelling in the legs, but it is no worse. OBJECTIVE: The patient is sitting up in his chair. He is alert, appears very comfortable in no dist ress. His temperature is 98.0, pulse 73, respirations 18, O2 sat 94% on room air, blood pressure 164 /76. Skin over the right forehead and frontal area of the scalp area where the skin cancer was excis ed is healing by secondary intention, looks much better with no surrounding redness. His lungs were clear. Heart, regular rate. The lower extremities have 1+ edema, but overall the legs look a little smaller than what they had. His weight is 165.3, mildly elevated from the day before 164. His lab shows a sodium of 138, potassium of 4.1. His BUN is 38 up from 36. His creatinine is 2.18, previous ly it was 2.01. His GFR was 29, down from 32. FBS 132, yesterday's fasting sugar was 116. ASSESSMENT: 1. Generalized weakness and deconditioning. A. Secondary to the recent acute hospitalization for congestive heart failure. B. Complicated by gait abnormality from the Parkinson's. C. Increased fall risk. D. Improved as of 04/05/2018. 2. Hospitalized at [facility] from 03/22/2018 until 03/29/2018 for acute on chronic diast olic congestive heart failure. 3. Diastolic congestive heart failure. A. Complicated by recent acute on chronic congestive failure, requiring hospitalization that has imp roved. B. Echocardiogram shows ejection fraction of 45%-50% with severe tricuspid regurgitation and moderat e mitral regurgitation and some restrictive filling with diastolic dysfunction. C. No evidence of acute congestive heart failure as of 04/05/2018. 4. Chronic right heart failure. A. Complicated by severe tricuspid regurgitation and peripheral edema that has improved. B. Stable, edema in the legs, 1+ but appears a little better. Weight stable at 165. 5. Diabetes, type 2. A. Controlled with a hemoglobin A1c of 6.2. B. Controlled on the oral agent, alogliptin and off the sliding scale. 6. Hypertension. A. Controlled as of 04/02/2018. 7. Coronary artery disease, status post coronary artery bypass x2, 2012. 8. Parkinson's disease. A. Stable as of 04/03/2018. He is now on the Sinemet 1 in the morning, 1 at bedtime and rest well a fter he uses the Sinemet at night as of 04/03/2018. 9. Alzheimer disease. 10. Chronic kidney disease, stage 3. A. GFR has declined from 33 to 29 with a rise in BUN from 36 to 38 as of 04/05/2018. 11. Chronic normocytic anemia. A. Hemoglobin 10.2 as of 03/30/2018. 12. Hypothyroidism. 14. Hyperlipidemia. 15. Code status: DNR. 16. Status post excision of a skin cancer on the right frontal area of the scalp in early 02/28/2018 . A. Gradually healing by secondary intention as of 04/05/2018. PLAN: Will place patient on trazodone 25 mg to use at night if needed. We will reduce the furosemid e to 40 mg daily. We will increase his fluid restriction to 2 liters from 1-09/15, will recheck basic metabolic panel in a couple of days.
[2018-04-05] MEDS: Simvastatin 20 MG TAB PO SCH (21:17)
[2018-04-06] MEDS: Levothyroxine Sodium 100 MCG TAB PO SCH (06:06)
[2018-04-06] MEDS: Isosorbide Mononitrate 20 MG TAB PO SCH ×2 (08:28→21:30)
[2018-04-06] MEDS: Alogliptin 25 MG TAB PO SCH (08:32)
[2018-04-06] MEDS: hydrALAZINE 25 MG TAB PO SCH ×3 (08:33→21:30)
[2018-04-06] MEDS: Amlodipine 5 MG TAB PO SCH (08:34)
[2018-04-06] MEDS: Aspirin 81 mg Enteric Coated Tablet PO SCH (08:35)
[2018-04-06] MEDS: Carbidopa/Levodopa 25-100 mg Tablet PO SCH ×2 (08:35→21:39)
[2018-04-06] MEDS: Potassium Chloride 20 MEQ TAB PO SCH (08:35)
[2018-04-06] MEDS: Furosemide 40 MG TAB PO SCH (08:35)
[2018-04-06] MEDS: Carvedilol 6.25 MG TAB PO SCH ×2 (08:35→21:32)
[2018-04-06] MEDS: Enoxaparin Sodium 30 MG/0.3 ML SYRINGE SC SCH (08:35)
[2018-04-06] MEDS: cloNIDine 0.1 MG TAB PO SCH ×2 (08:35→21:32)
[2018-04-06] MEDS: Lantiseptic Ointment 130 GM JAR TOP SCH ×2 (08:36→21:34)
[2018-04-06 12:01] VITALS: BMI 28.5
--- NOTE | 2018-04-06 12:04 | PRG ---
DATE OF SERVICE: 04/06/2018 SUBJECTIVE: The patient is feeling good this morning. He has no complaint. His said that he d id pretty good last night, slept well to about 3. Nurses did not want to administer the trazodone th at late in the morning as they felt like he would have a carryover effect, he was up some and walked some and then he gradually settled down and the trazodone was not given. We will use the trazodone i f he awakens earlier in the night, probably given this after around 2 o' clock may have a carryover e ffect. The patient's said he has made good progress with his walking and his step is better, wo rking on the [employer] exercise machine has helped. OBJECTIVE: The patient is sitting up in his geriatric chair. He is alert, appears very comfortable, in no distress. His vital signs show a temperature 98.3, pulse 60, respirations 18, O2 sat 94%, blo od pressure 167/77. His weight is 166. Lungs are clear. Heart, regular rate. The patient has trac e edema in the ankles and feet. There is just trace edema in the thigh area. His lesion on the area that was excised on the right frontal area of the scalp is healing. His FBS this morning was 137. The highest yesterday was 156. ASSESSMENT: 1. Generalized weakness and deconditioning. A. Secondary to the recent acute hospitalization for congestive heart failure. B. Complicated by gait abnormality from the Parkinson's. C. Increased fall risk. D. Improved as of 04/06/2018. 2. Hospitalized at [facility] from 03/22/2018 until 03/29/2018 for acute on chronic diast olic congestive heart failure. 3. Diastolic congestive heart failure. A. Complicated by recent acute on chronic congestive failure, requiring hospitalization that has imp roved. B. Echocardiogram shows ejection fraction of 45%-50% with severe tricuspid regurgitation and moderat e mitral regurgitation and some restrictive filling with diastolic dysfunction. C. No evidence of acute congestive heart failure as of 04/06/2018. 4. Chronic right heart failure. A. Complicated by severe tricuspid regurgitation and peripheral edema that has improved. B. Stable with a trace to 1+ edema in the lower leg. Weight 166 as of 04/06/2018. 5. Diabetes, type 2. A. Controlled with a hemoglobin A1c of 6.2. B. Well controlled on oral agent alogliptin as of 04/06/2018. 6. Hypertension. A. Controlled as of 04/02/2018. 7. Coronary artery disease, status post coronary artery bypass x2, 2012. 8. Parkinson's disease. A. Stable as of 04/03/2018. He is now on the Sinemet 1 in the morning, 1 at bedtime and rest well a fter he uses the Sinemet at night as of 04/03/2018. 9. Alzheimer disease. 10. Chronic kidney disease, stage 3. A. GFR has declined from 33 to 29 with a rise in BUN from 36 to 38 as of 04/05/2018. 11. Chronic normocytic anemia. A. Hemoglobin 10.2 as of 03/30/2018. 12. Hypothyroidism. 14. Hyperlipidemia. 15. Code status: DNR. 16. Status post excision of a skin cancer on the right frontal area of the scalp in early 02/28/2018 . A. Gradually healing by secondary intention as of 04/06/2018. PLAN: Continue present care. Continue physical therapy.
[2018-04-06] MEDS: Simvastatin 20 MG TAB PO SCH (21:33)
[2018-04-07 05:28] LABS: #Basophils 0.1 thou/uL (0.0-0.2); #Eosinphils 0.1 thou/uL (0.0-0.7); #Lymphocytes 1.2 thou/uL (1.20-3.40); #Monocytes 0.6 thou/uL (0.11-0.59); #Neutrophils 2.9 thou/uL (1.40-6.50); %Basophils 1.5 % (0.0-1.0); %Eosinophils 2.3 % (0.0-10.0); %Lymphocytes 24.4 % (21.0-51.0); %Monocytes 11.7 % (0.0-10.0); %Neutrophils 60.1 % (42.0-75.0); Hemoglobin 9.9 g/dL (14.0-18.0); Mean Corpuscular HGB CONC 32.8 g/dL (32.0-36.0); Mean Corpuscular Hemoglobin 27.4 pg (27.0-31.0); Mean Corpuscular Volume 83.6 fL (78.0-98.0); Mean Platelet Volume 6.8 fL (7.4-10.4); Platelet Count 159 thou/uL (130-400); RBC Distribution Width 14.5 % (11.5-14.5); Red Blood Cell (RBC) Count 3.63 mill/uL (4.70-6.10); White Blood Cell (WBC) Count 4.9 thou/uL (4.8-10.8)
[2018-04-07 05:45] LABS: Anion Gap 14 mmol/L (10-20); BUN (Urea Nitrogen) 35 mg/dL (8.4-25.7); Calc. Creatinine Clearance 26 mL/min (70-130); Calcium 8.7 mg/dL (7.8-10.44); Carbon Dioxide 25 mmol/L (23-31); Chloride 103 mmol/L (98-107); Estimated GFR-MDRD 29; Glucose 111 mg/dL (83-110); Potassium 4.3 mmol/L (3.5-5.1)
[2018-04-07 05:49] LABS: Sodium 138 mmol/L (136-145)
[2018-04-07] MEDS: Levothyroxine Sodium 100 MCG TAB PO SCH (06:23)
[2018-04-07] MEDS: cloNIDine 0.1 MG TAB PO SCH ×2 (08:12→20:29)
[2018-04-07] MEDS: Isosorbide Mononitrate 20 MG TAB PO SCH ×2 (08:12→20:29)
[2018-04-07] MEDS: hydrALAZINE 25 MG TAB PO SCH ×3 (08:13→20:29)
[2018-04-07] MEDS: Potassium Chloride 20 MEQ TAB PO SCH (08:13)
[2018-04-07] MEDS: Carvedilol 6.25 MG TAB PO SCH ×2 (08:14→20:30)
[2018-04-07] MEDS: Amlodipine 5 MG TAB PO SCH (08:14)
[2018-04-07] MEDS: Carbidopa/Levodopa 25-100 mg Tablet PO SCH ×2 (08:14→20:29)
[2018-04-07] MEDS: Alogliptin 25 MG TAB PO SCH (08:14)
[2018-04-07] MEDS: Aspirin 81 mg Enteric Coated Tablet PO SCH (08:14)
[2018-04-07] MEDS: Furosemide 40 MG TAB PO SCH (08:14)
[2018-04-07] MEDS: Lantiseptic Ointment 130 GM JAR TOP SCH ×2 (08:15→20:30)
[2018-04-07] MEDS: Enoxaparin Sodium 30 MG/0.3 ML SYRINGE SC SCH (08:15)
--- NOTE | 2018-04-07 10:10 | PRG ---
DATE OF SERVICE: 04/07/2018 SUBJECTIVE: The patient is up this morning, sitting in a chair. His said that he had an excell ent night. He slept all night. He took his Sinemet at bedtime and also trazodone 25 mg at bedtime. He did not get up and the night was excellent. The trazodone will be henceforth scheduled to receiv e at bedtime. OBJECTIVE: The patient is alert, appears very comfortable, in no distress. Vital signs show a tempe rature 97.8, pulse 59, respirations 22, O2 sat 96% on room air, blood pressure 161/77. His lungs wer e clear. Heart, regular rate. Extremities: A 1+ edema. LABORATORY DATA: His H and H is 9.9 and 30.3, white cell count 4900 with 60% segs, 24% lymphocytes, and platelet count of 159,000. Sodium 138; potassium 4.3; BUN 35, down from a high of 38; creatinine 2.15, down from 2.18. GFR 29, stable. ASSESSMENT: 1. Generalized weakness and deconditioning. A. Secondary to the recent acute hospitalization for congestive heart failure. B. Complicated by gait abnormality from the Parkinson's. C. Increased fall risk. D. Gait improving. General strength improving as of 04/07/2018. 2. Hospitalized at [facility] from 03/22/2018 until 03/29/2018 for acute on chronic diast olic congestive heart failure. 3. Diastolic congestive heart failure. A. Complicated by recent acute on chronic congestive failure, requiring hospitalization that has imp roved. B. Echocardiogram shows ejection fraction of 45%-50% with severe tricuspid regurgitation and moderat e mitral regurgitation and some restrictive filling with diastolic dysfunction. C. No evidence of acute congestive heart failure as of 04/07/2018. 4. Chronic right heart failure. A. Complicated by severe tricuspid regurgitation and peripheral edema that has improved. B. Stable with a trace to 1+ edema in the lower leg. Weight 166 as of 04/06/2018. 5. Diabetes, type 2. A. Controlled with a hemoglobin A1c of 6.2. B. Well controlled on oral agent alogliptin as of 04/07/2018. 6. Hypertension. A. Controlled as of 04/02/2018. 7. Coronary artery disease, status post coronary artery bypass x2, 2013. 8. Parkinson's disease. A. Stable as of 04/07/2018. 9. Alzheimer disease. 10. Chronic kidney disease, stage 3. A. GFR has declined from 33 to 29 with a rise in BUN from 36 to 38 as of 04/05/2018. 11. Chronic normocytic anemia. A. Hemoglobin 10.2 as of 03/30/2018. 12. Hypothyroidism. 14. Hyperlipidemia. 15. Code status: DNR. 16. Status post excision of a skin cancer on the right frontal area of the scalp in early 02/28/2018 . A. Gradually healing by secondary intention as of 04/07/2018. 17. Insomnia with nighttime awakening. A. Controlled as of 04/07/2018. PLAN: Continue PT. We will schedule his trazodone 25 mg at bedtime along with the Sinemet. We will continue just the lower dose of furosemide that is 40 mg a day, unless his weight and swelling mady nues to increase. His renal function is stable. His weight today had dropped a half a pound at 165. 9.
[2018-04-07] MEDS: Loperamide HCl 2 MG CAP PO PRN (19:10)
[2018-04-07] MEDS: traZODone HCl 50 MG TAB PO SCH (20:29)
[2018-04-07] MEDS: Simvastatin 20 MG TAB PO SCH (20:29)
[2018-04-08] MEDS: Levothyroxine Sodium 100 MCG TAB PO SCH (05:28)
[2018-04-08 06:04] LABS: #Basophils 0.1 thou/uL (0.0-0.2); #Eosinphils 0.1 thou/uL (0.0-0.7); #Lymphocytes 1.1 thou/uL (1.20-3.40); #Monocytes 0.6 thou/uL (0.11-0.59); #Neutrophils 3.1 thou/uL (1.40-6.50); %Basophils 1.1 % (0.0-1.0); %Lymphocytes 22.8 % (21.0-51.0); %Monocytes 11.3 % (0.0-10.0); %Neutrophils 62.8 % (42.0-75.0); Hemoglobin 9.1 g/dL (14.0-18.0); Mean Corpuscular Hemoglobin 26.8 pg (27.0-31.0); Mean Corpuscular Volume 83.8 fL (78.0-98.0); Mean Platelet Volume 7.1 fL (7.4-10.4); Platelet Count 162 thou/uL (130-400); RBC Distribution Width 14.6 % (11.5-14.5); White Blood Cell (WBC) Count 4.8 thou/uL (4.8-10.8)
[2018-04-08] MEDS: Isosorbide Mononitrate 20 MG TAB PO SCH ×3 (07:41→21:00)
[2018-04-08] MEDS: Aspirin 81 mg Enteric Coated Tablet PO SCH (07:42)
[2018-04-08] MEDS: Furosemide 40 MG TAB PO SCH (07:42)
[2018-04-08] MEDS: Carvedilol 6.25 MG TAB PO SCH ×3 (07:42→21:12)
[2018-04-08] MEDS: hydrALAZINE 25 MG TAB PO SCH ×4 (07:42→21:09)
[2018-04-08] MEDS: Carbidopa/Levodopa 25-100 mg Tablet PO SCH ×3 (07:42→21:13)
[2018-04-08] MEDS: Alogliptin 25 MG TAB PO SCH (07:42)
[2018-04-08] MEDS: cloNIDine 0.1 MG TAB PO SCH ×3 (07:42→21:12)
[2018-04-08] MEDS: Amlodipine 5 MG TAB PO SCH (07:43)
[2018-04-08] MEDS: Potassium Chloride 20 MEQ TAB PO SCH (07:43)
[2018-04-08] MEDS: Lantiseptic Ointment 130 GM JAR TOP SCH ×2 (07:44→20:53)
[2018-04-08] MEDS: Enoxaparin Sodium 30 MG/0.3 ML SYRINGE SC SCH (07:44)
--- NOTE | 2018-04-08 13:49 | PRG ---
DATE OF SERVICE: 04/08/2018 SUBJECTIVE: The patient slept good again last night. His woke him around 7 to get up and prepa ratory for breakfast. He is doing very well with his therapy. His said he is walking further a nd seemed to be much stronger. OBJECTIVE: The patient is sitting up in his chair, preparing to eat breakfast. He looks very comfor table and in no distress. He is very talkative, and appears very content and happy. His vital signs show a temperature of 98.2, pulse 62, blood pressure 154/77, respirations 22, O2 sat 95% on room air . His lungs are clear. Heart, regular rate. Extremities just have trace edema. His lab today shows an H&H of 9.1 and 28.5, white cell count 4800 with 63% segs, 23% lymphocytes, and a platelet count of 162,000. FBS this morning 123. His weight today is 166. ASSESSMENT: 1. Generalized weakness and deconditioning. A. Secondary to the recent acute hospitalization for congestive heart failure. B. Complicated by gait abnormality from the Parkinson's. C. Increased fall risk. D. Gait improving. General strength improving as of 04/08/2018. 2. Hospitalized at [facility] from 03/22/2018 until 03/29/2018 for acute on chronic diast olic congestive heart failure. 3. Diastolic congestive heart failure. A. Complicated by recent acute on chronic congestive failure, requiring hospitalization that has imp roved. B. Echocardiogram shows ejection fraction of 45%-50% with severe tricuspid regurgitation and moderat e mitral regurgitation and some restrictive filling with diastolic dysfunction. C. No evidence of acute congestive heart failure as of 04/08/2018. 4. Chronic right heart failure. A. Complicated by severe tricuspid regurgitation and peripheral edema that has improved. B. Stable with trace to 1+ edema of the lower extremities. Weight 166 as of 04/08/2018. 5. Diabetes, type 2. A. Controlled with a hemoglobin A1c of 6.2. B. Well controlled on oral agent alogliptin as of 04/08/2018. 6. Hypertension. A. Controlled as of 04/02/2018. 7. Coronary artery disease, status post coronary artery bypass x2, 2012. 8. Parkinson's disease. A. Stable as of 04/08/2018. 9. Alzheimer disease. 10. Chronic kidney disease, stage 3. A. GFR has declined from 33 to 29 with a rise in BUN from 36 to 38 as of 04/05/2018. 11. Chronic normocytic anemia. A. Hemoglobin 9.1 as of 04/08/2018. 12. Hypothyroidism. 14. Hyperlipidemia. 15. Code status: DNR. 16. Status post excision of a skin cancer on the right frontal area of the scalp in early 02/28/2018 . A. Gradually healing by secondary intention as of 04/08/2018. 17. Insomnia with nighttime awakening. A. Controlled as of 04/07/2018. PLAN: Continue present care. Continue physical therapy. [facility].
[2018-04-08] MEDS: Simvastatin 20 MG TAB PO SCH ×2 (20:48→21:11)
[2018-04-08] MEDS: traZODone HCl 50 MG TAB PO SCH ×2 (20:50→21:14)
[2018-04-09] MEDS: Levothyroxine Sodium 100 MCG TAB PO SCH (05:58)
[2018-04-09 06:27] LABS: Anion Gap 19 mmol/L (10-20); BUN (Urea Nitrogen) 29 mg/dL (8.4-25.7); Calc. Creatinine Clearance 25 mL/min (70-130); Calcium 8.8 mg/dL (7.8-10.44); Carbon Dioxide 17 mmol/L (23-31); Chloride 104 mmol/L (98-107); Estimated GFR-MDRD 27; Glucose 121 mg/dL (83-110); Potassium 4.8 mmol/L (3.5-5.1); Sodium 135 mmol/L (136-145)
[2018-04-09] MEDS: Carbidopa/Levodopa 25-100 mg Tablet PO SCH ×2 (07:57→20:00)
[2018-04-09] MEDS: Alogliptin 6.25 MG TAB PO SCH (07:59)
[2018-04-09] MEDS: Aspirin 81 mg Enteric Coated Tablet PO SCH (07:59)
[2018-04-09] MEDS: Amlodipine 5 MG TAB PO SCH (08:02)
[2018-04-09] MEDS: cloNIDine 0.1 MG TAB PO SCH ×2 (08:03→20:00)
[2018-04-09] MEDS: Carvedilol 6.25 MG TAB PO SCH ×2 (08:03→20:00)
[2018-04-09] MEDS: Enoxaparin Sodium 30 MG/0.3 ML SYRINGE SC SCH (08:03)
[2018-04-09] MEDS: Potassium Chloride 20 MEQ TAB PO SCH (08:04)
[2018-04-09] MEDS: Isosorbide Mononitrate 20 MG TAB PO SCH ×2 (08:04→19:59)
[2018-04-09] MEDS: Lantiseptic Ointment 130 GM JAR TOP SCH ×2 (08:04→21:49)
[2018-04-09] MEDS: hydrALAZINE 25 MG TAB PO SCH ×3 (08:04→20:00)
[2018-04-09] MEDS: Furosemide 40 MG TAB PO SCH (08:04)
--- NOTE | 2018-04-09 12:25 | PRG ---
DATE OF SERVICE: 04/09/2018 SUBJECTIVE: The patient had a good night. He did get up a couple times to urinate, but then went ba ck to bed and slept. The patient developed a reddened, nonblanchable area on the buttock, but no bro arelis ulceration. Mepilex dressing has been applied over that and he is taking some short periods lying down to remove some of the pressure off of that. He is continuing to work with physical therapy and he is doing better. He is also working on the [employer] exercise machine that works his arms and legs. His says he continues to gain strength. OBJECTIVE: The patient is lying on bed on the left side. He is awake, alert, interactive, appears i n no distress. His temperature 98.3, pulse 56, blood pressure 152/74, respirations 20, O2 saturation 94% on room air. Lungs were clear. Heart, regular rate. Extremities, no edema. His FBS this morn ing was 129. ASSESSMENT: 1. Generalized weakness and deconditioning. A. Secondary to the recent acute hospitalization for congestive heart failure. B. Complicated by gait abnormality from the Parkinson's. C. Increased fall risk. D. Gait improving. General strength improving as of 04/09/2018. 2. Hospitalized at [facility] from 03/22/2018 until 03/29/2018 for acute on chronic diast olic congestive heart failure. 3. Diastolic congestive heart failure. A. Complicated by recent acute on chronic congestive failure, requiring hospitalization that has imp roved. B. Echocardiogram shows ejection fraction of 45%-50% with severe tricuspid regurgitation and moderat e mitral regurgitation and some restrictive filling with diastolic dysfunction. C. No evidence of acute congestive heart failure as of 04/09/2018. 4. Chronic right heart failure. A. Complicated by severe tricuspid regurgitation and peripheral edema that has improved. B. Stable with 1+ edema of the lower extremity as of 04/09/2018. 5. Diabetes, type 2. A. Controlled with a hemoglobin A1c of 6.2. B. Well controlled on oral agent alogliptin as of 04/09/2018. 6. Hypertension. A. Controlled as of 04/09/2018. 7. Coronary artery disease, status post coronary artery bypass x2, 2013. 8. Parkinson's disease. A. Stable as of 04/09/2018. 9. Alzheimer disease. 10. Chronic kidney disease, stage 3. A. GFR has declined from 33 to 29 with a rise in BUN from 36 to 38 as of 04/05/2018. 11. Chronic normocytic anemia. A. Hemoglobin 9.1 as of 04/08/2018. 12. Hypothyroidism. 14. Hyperlipidemia. 15. Code status: DNR. 16. Status post excision of a skin cancer on the right frontal area of the scalp in early 02/28/2018 . A. Gradually healing by secondary intention as of 04/09/2018. 17. Insomnia with nighttime awakening. A. Controlled as of 04/09/2018. 18. Stage 1 decubitus on the sacrum. PLAN: Continue present care. Continue short periods during the day where he is lying down to offloa d the reddened area on the buttock. Continue protecting with the Mepilex. Continue physical therapy .
[2018-04-09] MEDS: Simvastatin 20 MG TAB PO SCH (20:00)
[2018-04-09] MEDS: traZODone HCl 50 MG TAB PO SCH (20:01)
[2018-04-10] MEDS: Levothyroxine Sodium 100 MCG TAB PO SCH (05:37)
[2018-04-10] MEDS: Alogliptin 6.25 MG TAB PO SCH (09:42)
[2018-04-10] MEDS: Amlodipine 5 MG TAB PO SCH (09:42)
[2018-04-10] MEDS: Carbidopa/Levodopa 25-100 mg Tablet PO SCH ×2 (09:42→20:16)
[2018-04-10] MEDS: Carvedilol 6.25 MG TAB PO SCH ×2 (09:43→20:15)
[2018-04-10] MEDS: cloNIDine 0.1 MG TAB PO SCH ×2 (09:43→20:17)
[2018-04-10] MEDS: hydrALAZINE 25 MG TAB PO SCH ×3 (09:43→20:16)
[2018-04-10] MEDS: Enoxaparin Sodium 30 MG/0.3 ML SYRINGE SC SCH (09:43)
[2018-04-10] MEDS: Aspirin 81 mg Enteric Coated Tablet PO SCH (09:43)
[2018-04-10] MEDS: Furosemide 40 MG TAB PO SCH ×2 (09:43→14:17)
[2018-04-10] MEDS: Potassium Chloride 20 MEQ TAB PO SCH (09:44)
[2018-04-10] MEDS: Isosorbide Mononitrate 20 MG TAB PO SCH ×2 (09:44→20:17)
[2018-04-10] MEDS: Lantiseptic Ointment 130 GM JAR TOP SCH ×2 (09:45→20:23)
[2018-04-10] MEDS: traZODone HCl 50 MG TAB PO SCH (20:15)
[2018-04-10] MEDS: Simvastatin 20 MG TAB PO SCH (20:16)
--- NOTE | 2018-04-10 20:29 | PRG ---
DATE OF SERVICE: 04/10/2018 SUBJECTIVE: The patient says he is doing good. He has been up already and he has had breakfast, now lying back down. He has been doing well with his therapy. His thinks he is much stronger than when he came in here and he is walking better with physical therapy, now he is walking up to 150 fee t, still has a little shuffling gait, using a rolling walker and standby assistance. Still needs hel p with transfers. OBJECTIVE: GENERAL: The patient is lying in bed, alert, talkative, appears in no distress. VITAL SIGNS: His temperature is 98.9, pulse 63, blood pressure 148/74, respirations 18, O2 sat 94% o n room air. His weight is up to 168 as of yesterday. Today's weight is pending. LUNGS: Clear. HEART: Regular rate. EXTREMITIES: Lower extremities, 1+ edema. ASSESSMENT: 1. Generalized weakness and deconditioning. A. Secondary to the recent acute hospitalization for congestive heart failure. B. Complicated by gait abnormality from the Parkinson's. C. Increased fall risk. D. Gait improving. General strength improving as of 04/10/2018. 2. Hospitalized at [facility] from 03/22/2018 until 03/29/2018 for acute on chronic diast olic congestive heart failure. 3. Diastolic congestive heart failure. A. Complicated by recent acute on chronic congestive failure, requiring hospitalization that has imp roved. B. Echocardiogram shows ejection fraction of 45%-50% with severe tricuspid regurgitation and moderat e mitral regurgitation and some restrictive filling with diastolic dysfunction. C. No evidence of acute congestive heart failure as of 04/10/2018. 4. Chronic right heart failure. A. Complicated by severe tricuspid regurgitation and peripheral edema that has improved. B. Some increased edema in the lower extremity and weight up to 168 as of 04/10/2018. 5. Diabetes, type 2. A. Controlled with a hemoglobin A1c of 6.2. B. Well controlled on oral agent alogliptin as of 04/09/2018. 6. Hypertension. A. Controlled as of 04/10/2018. 7. Coronary artery disease, status post coronary artery bypass x2, 2013. 8. Parkinson's disease. A. Stable as of 04/10/2018. 9. Alzheimer disease. 10. Chronic kidney disease, stage 3. A. GFR has declined from 33 to 29 with a rise in BUN from 36 to 38 as of 04/05/2018. 11. Chronic normocytic anemia. A. Hemoglobin 9.1 as of 04/08/2018. 12. Hypothyroidism. 14. Hyperlipidemia. 15. Code status: DNR. 16. Status post excision of a skin cancer on the right frontal area of the scalp in early 02/28/2018 . A. Gradually healing by secondary intention as of 04/09/2018. 17. Insomnia with nighttime awakening. A. Controlled as of 04/10/2018. 18. Stage 1 decubitus on the sacrum. PLAN: The patient is beginning to retain a little bit more fluid and weight is increasing. We had r educed the furosemide 40 mg from b.i.d. to one time a day since he had had a little decline in his re nal function with reaccumulation of the fluid and the stability of his GFR. We will increase the fur osemide 40 mg to b.i.d. Continue physical therapy.
[2018-04-11] MEDS: Levothyroxine Sodium 100 MCG TAB PO SCH (05:48)
[2018-04-11] MEDS: Carbidopa/Levodopa 25-100 mg Tablet PO SCH ×2 (07:42→20:33)
[2018-04-11] MEDS: Enoxaparin Sodium 30 MG/0.3 ML SYRINGE SC SCH (09:07)
[2018-04-11] MEDS: hydrALAZINE 25 MG TAB PO SCH ×3 (09:08→20:34)
[2018-04-11] MEDS: Isosorbide Mononitrate 20 MG TAB PO SCH ×2 (09:08→20:34)
[2018-04-11] MEDS: Potassium Chloride 20 MEQ TAB PO SCH (09:08)
[2018-04-11] MEDS: Amlodipine 5 MG TAB PO SCH (09:09)
[2018-04-11] MEDS: cloNIDine 0.1 MG TAB PO SCH ×2 (09:09→20:34)
[2018-04-11] MEDS: Alogliptin 6.25 MG TAB PO SCH (09:09)
[2018-04-11] MEDS: Furosemide 40 MG TAB PO SCH ×2 (09:10→15:03)
[2018-04-11] MEDS: Aspirin 81 mg Enteric Coated Tablet PO SCH (09:10)
[2018-04-11] MEDS: Lantiseptic Ointment 130 GM JAR TOP SCH ×3 (09:10→22:30)
[2018-04-11] MEDS: Carvedilol 6.25 MG TAB PO SCH ×2 (09:10→20:34)
[2018-04-11] MEDS: Simvastatin 20 MG TAB PO SCH (20:35)
[2018-04-11] MEDS: traZODone HCl 50 MG TAB PO SCH (20:37)
[2018-04-12 05:35] LABS: #Basophils 0.1 thou/uL (0.0-0.2); #Eosinphils 0.1 thou/uL (0.0-0.7); #Monocytes 0.5 thou/uL (0.11-0.59); #Neutrophils 2.6 thou/uL (1.40-6.50); %Basophils 1.4 % (0.0-1.0); %Lymphocytes 24.3 % (21.0-51.0); %Monocytes 11.7 % (0.0-10.0); %Neutrophils 60.7 % (42.0-75.0); Anion Gap 14 mmol/L (10-20); BUN (Urea Nitrogen) 34 mg/dL (8.4-25.7); Calcium 8.6 mg/dL (7.8-10.44); Carbon Dioxide 24 mmol/L (23-31); Chloride 104 mmol/L (98-107); Glucose 115 mg/dL (83-110); Hemoglobin 9.5 g/dL (14.0-18.0); Mean Corpuscular HGB CONC 32.4 g/dL (32.0-36.0); Mean Corpuscular Hemoglobin 27.2 pg (27.0-31.0); Mean Platelet Volume 6.9 fL (7.4-10.4); Platelet Count 164 thou/uL (130-400); Potassium 3.5 mmol/L (3.5-5.1); RBC Distribution Width 14.6 % (11.5-14.5); Sodium 138 mmol/L (136-145); White Blood Cell (WBC) Count 4.3 thou/uL (4.8-10.8)
[2018-04-12] MEDS: Levothyroxine Sodium 100 MCG TAB PO SCH (05:38)
[2018-04-12 05:50] LABS: Calc. Creatinine Clearance 25 mL/min (70-130); Estimated GFR-MDRD 28
[2018-04-12] MEDS: Carbidopa/Levodopa 25-100 mg Tablet PO SCH ×2 (07:33→20:05)
[2018-04-12] MEDS: Isosorbide Mononitrate 20 MG TAB PO SCH ×2 (08:15→20:05)
[2018-04-12] MEDS: Potassium Chloride 20 MEQ TAB PO SCH (08:15)
[2018-04-12] MEDS: Alogliptin 6.25 MG TAB PO SCH (08:15)
[2018-04-12] MEDS: Furosemide 40 MG TAB PO SCH ×2 (08:15→14:07)
[2018-04-12] MEDS: Enoxaparin Sodium 30 MG/0.3 ML SYRINGE SC SCH (08:15)
[2018-04-12] MEDS: Amlodipine 5 MG TAB PO SCH (08:16)
[2018-04-12] MEDS: Carvedilol 6.25 MG TAB PO SCH ×2 (08:16→20:04)
[2018-04-12] MEDS: cloNIDine 0.1 MG TAB PO SCH ×2 (08:16→20:05)
[2018-04-12] MEDS: Aspirin 81 mg Enteric Coated Tablet PO SCH (08:16)
[2018-04-12] MEDS: hydrALAZINE 25 MG TAB PO SCH ×3 (08:16→20:05)
[2018-04-12] MEDS: Lantiseptic Ointment 130 GM JAR TOP SCH ×2 (08:17→20:06)
--- NOTE | 2018-04-12 08:49 | PRG ---
DATE OF SERVICE: 04/11/2018 SUBJECTIVE: Yesterday, patient was a little more sluggish and sleepy. He spent most of the day just resting. Today, he seemed to be back to his usual mental status. He is awake, alert, has been up, presently in his face. OBJECTIVE: GENERAL APPEARANCE: The patient is alert, talkative, appears comfortable in no distress. VITAL SIGNS: Temp is 98.4, pulse 64, blood pressure 162/76, respirations 18 and O2 sat 94% on room a ir. His weight is stable at 168. LUNGS: Clear. HEART: Regular rate. MUSCULOSKELETAL: Lower extremities, there is 1+ edema, but this seems smaller than yesterday. Christopher lang is standing with his walker. He was turning and is a little unsteady in the process of turning, b ut just a little steadiness quickly restabilized. ASSESSMENT: 1. Generalized weakness and deconditioning. A. Secondary to the recent acute hospitalization for congestive heart failure. B. Complicated by gait abnormality from the Parkinson's. C. No evidence of acute congestive failure as of 04/11/2018. D. Gait improving. General strength improving as of 04/11/2018. 2. Hospitalized at [facility] from 03/22/2018 until 03/29/2018 for acute on chronic diast olic congestive heart failure. 3. Diastolic congestive heart failure. A. Complicated by recent acute on chronic congestive failure, requiring hospitalization that has imp roved. B. Echocardiogram shows ejection fraction of 45%-50% with severe tricuspid regurgitation and moderat e mitral regurgitation and some restrictive filling with diastolic dysfunction. C. No evidence of acute congestive heart failure as of 04/10/2018. 4. Chronic right heart failure. A. Complicated by severe tricuspid regurgitation and peripheral edema that has improved. B. Peripheral edema, little better. Weight stable at 168 as of 04/11/2018. 5. Diabetes, type 2. A. Controlled with a hemoglobin A1c of 6.2. B. Well controlled on oral agent alogliptin as of 04/09/2018. 6. Hypertension. A. Controlled as of 04/11/2018. 7. Coronary artery disease, status post coronary artery bypass x2, 2013. 8. Parkinson's disease. A. Stable as of 04/10/2018. 9. Alzheimer disease. 10. Chronic kidney disease, stage 3. A. GFR has declined from 33 to 29 with a rise in BUN from 36 to 38 as of 04/05/2018. 11. Chronic normocytic anemia. A. Hemoglobin 9.1 as of 04/08/2018. 12. Hypothyroidism. 14. Hyperlipidemia. 15. Code status: DNR. 16. Status post excision of a skin cancer on the right frontal area of the scalp in early 02/28/2018 . A. Gradually healing by secondary intention as of 04/11/2018. 17. Insomnia with nighttime awakening. A. Controlled as of 04/11/2018. 18. Stage 1 decubitus on the sacrum. PLAN: Continue present care. Continue the furosemide b.i.d. We will reassess renal function tomorr ow.
--- NOTE | 2018-04-12 08:51 | PRG ---
DATE OF SERVICE: 04/12/2018 SUBJECTIVE: The patient had a good night, slept well. He has not been having any trouble. He has h ad no shortness of breath, no cough. He has already been for walk, walked almost 300 feet with a rol ling walker and just standby assistance. He is doing better with his transfer, but still needs just a little standby assistance to help steady him. OBJECTIVE: The patient is sitting in his chair. He is alert, talkative, appears very comfortable, i n no distress. Temp 97.7, pulse 60, respirations 20, O2 saturation 94% on room air, blood pressure 1 71/80. He has not yet had morning meds. Lungs, there is a little coarseness to the breath sounds on expiration. There was no wheeze. There are no rales. Heart, regular rate. Extremities: 1+ edema . His weight is down to 167. His labs shows an H&H of 9.5 and 29.4, white cell count 4300 with 61% segs, 24% lymphocytes, and a platelet count of 164,000. Sodium 138, potassium 3.5, BUN 34, creatinin e 2.2, GFR is 28 up from 27. FBS 115. ASSESSMENT: 1. Generalized weakness and deconditioning. A. Secondary to the recent acute hospitalization for congestive heart failure. B. Complicated by gait abnormality from the Parkinson's. C. Increased fall risk. D. Improved. Walking up to 300 feet with a rolling walker and standby assistance. Requires some co ntact standby assistance. 2. Hospitalized at [facility] from 03/22/2018 until 03/29/2018 for acute on chronic diast olic congestive heart failure. 3. Diastolic congestive heart failure. A. Complicated by recent acute on chronic congestive failure, requiring hospitalization that has imp roved. B. Echocardiogram shows ejection fraction of 45%-50% with severe tricuspid regurgitation and moderat e mitral regurgitation and some restrictive filling with diastolic dysfunction. C. No evidence of acute congestive heart failure as of 04/12/2018. 4. Chronic right heart failure. A. Complicated by severe tricuspid regurgitation and peripheral edema that has improved. B. Edema in the lower extremities still 1+, but weight is down to 167 as of 04/12/2018. 5. Diabetes, type 2. A. Controlled with a hemoglobin A1c of 6.2. B. Well controlled on oral agent alogliptin as of 04/09/2018. 6. Hypertension. A. Controlled as of 04/10/2018. 7. Coronary artery disease, status post coronary artery bypass x2, 2012. 8. Parkinson's disease. A. Stable as of 04/10/2018. 9. Alzheimer disease. 10. Chronic kidney disease, stage 3. A. GFR has declined from 33 to 29 with a rise in BUN from 36 to 38 as of 04/05/2018. B. GFR is 28 as of 04/12/2018. 11. Chronic normocytic anemia. A. Hemoglobin 9.1 as of 04/08/2018. 12. Hypothyroidism. 14. Hyperlipidemia. 15. Code status: DNR. 16. Status post excision of a skin cancer on the right frontal area of the scalp in early 02/28/2018 . A. Gradually healing by secondary intention as of 04/09/2018. 17. Insomnia with nighttime awakening. A. Controlled as of 04/10/2018. 18. Stage 1 decubitus on the sacrum. PLAN: Overall, the patient is doing better. His strength is improving, but he still needs just a li ttle assistance, particularly with transfer. With his Parkinson's he has trouble with writing and tu rning and easily loses his balance. He requires just standby assistance. We will continue PT. Cont inue the furosemide b.i.d.
[2018-04-12] MEDS: Simvastatin 20 MG TAB PO SCH (20:06)
[2018-04-12] MEDS: traZODone HCl 50 MG TAB PO SCH (20:07)
[2018-04-13] MEDS: Levothyroxine Sodium 100 MCG TAB PO SCH (06:05)
[2018-04-13] MEDS: Isosorbide Mononitrate 20 MG TAB PO SCH ×2 (08:03→20:05)
[2018-04-13] MEDS: Carbidopa/Levodopa 25-100 mg Tablet PO SCH ×2 (08:03→20:04)
[2018-04-13] MEDS: Enoxaparin Sodium 30 MG/0.3 ML SYRINGE SC SCH (08:03)
[2018-04-13] MEDS: Potassium Chloride 20 MEQ TAB PO SCH (08:03)
[2018-04-13] MEDS: Alogliptin 6.25 MG TAB PO SCH (08:03)
[2018-04-13] MEDS: Carvedilol 6.25 MG TAB PO SCH ×2 (08:03→20:04)
[2018-04-13] MEDS: hydrALAZINE 25 MG TAB PO SCH ×3 (08:04→20:04)
[2018-04-13] MEDS: Amlodipine 5 MG TAB PO SCH (08:04)
[2018-04-13] MEDS: Aspirin 81 mg Enteric Coated Tablet PO SCH (08:04)
[2018-04-13] MEDS: cloNIDine 0.1 MG TAB PO SCH ×2 (08:04→20:04)
[2018-04-13] MEDS: Furosemide 40 MG TAB PO SCH ×2 (08:04→14:11)
[2018-04-13] MEDS: Lantiseptic Ointment 130 GM JAR TOP SCH ×2 (09:12→20:05)
--- NOTE | 2018-04-13 10:40 | PRG ---
DATE OF SERVICE: 04/13/2018 SUBJECTIVE: The patient is doing well. His said he had a very good night. The low dose trazod one, along with Sinemet works very well for his sleep. He is doing well with therapy. He is walking further, but still just needs someone standby to help to ensure he does get over balanced. He has t rouble with writing due to his Parkinson's disease. He has had no shortness of breath. OBJECTIVE: The patient is sitting up in a bedside chair. He is alert, appears very comfortable and in no distress. His temperature is 97.9, pulse 74, respirations 18, O2 sat 95% on room air, blood pr essure 171/71, last evening it was 161/85. His weight is down to 166. His extremities have less katherine ma, just trace to 1+. ASSESSMENT: 1. Generalized weakness and deconditioning. A. Secondary to the recent acute hospitalization for congestive heart failure. B. Complicated by gait abnormality from the Parkinson's. C. Increased fall risk. D. Improved, walking up to 300 feet with a rolling walker and standby assistance. Still requires st andby assistance just to help prevent any imbalance which he has difficulty correcting due to the Par kinson's as of 04/13/2018. 2. Hospitalized at [facility] from 03/22/2018 until 03/29/2018 for acute on chronic diast olic congestive heart failure. 3. Diastolic congestive heart failure. A. Complicated by recent acute on chronic congestive failure, requiring hospitalization that has imp roved. B. Echocardiogram shows ejection fraction of 45%-50% with severe tricuspid regurgitation and moderat e mitral regurgitation and some restrictive filling with diastolic dysfunction. C. No evidence of acute congestive heart failure as of 04/13/2018. 4. Chronic right heart failure. A. Complicated by severe tricuspid regurgitation and peripheral edema that has improved. B. Edema of the lower extremities improved and weight down to 166 as of 04/13/2018. 5. Diabetes, type 2. A. Controlled with a hemoglobin A1c of 6.2. B. Well controlled on oral agent alogliptin as of 04/09/2018. 6. Hypertension. A. Controlled as of 04/10/2018. 7. Coronary artery disease, status post coronary artery bypass x2, 2012. 8. Parkinson's disease. A. Stable as of 04/13/2018. 9. Alzheimer disease. 10. Chronic kidney disease, stage 3. A. GFR has declined from 33 to 29 with a rise in BUN from 36 to 38 as of 04/05/2018. B. GFR is 28 as of 04/12/2018. 11. Chronic normocytic anemia. A. Hemoglobin 9.1 as of 04/08/2018. 12. Hypothyroidism. 14. Hyperlipidemia. 15. Code status: DNR. 16. Status post excision of a skin cancer on the right frontal area of the scalp in early 02/28/2018 . A. Gradually healing by secondary intention as of 04/09/2018. 17. Insomnia with nighttime awakening. A. Remains controlled as of 04/13/2018. 18. Stage 1 decubitus on the sacrum. PLAN: Continue present care. Continue PT, OT and targeting Thursday04/16/2018 for discharge to his [facility].
[2018-04-13] MEDS: traZODone HCl 50 MG TAB PO SCH (20:06)
[2018-04-13] MEDS: Simvastatin 20 MG TAB PO SCH (20:06)
[2018-04-14] MEDS: Levothyroxine Sodium 100 MCG TAB PO SCH (05:05)
[2018-04-14] MEDS: Enoxaparin Sodium 30 MG/0.3 ML SYRINGE SC SCH (08:18)
[2018-04-14] MEDS: Aspirin 81 mg Enteric Coated Tablet PO SCH (08:19)
[2018-04-14] MEDS: hydrALAZINE 25 MG TAB PO SCH ×3 (08:19→21:07)
[2018-04-14] MEDS: Amlodipine 5 MG TAB PO SCH (08:19)
[2018-04-14] MEDS: Carbidopa/Levodopa 25-100 mg Tablet PO SCH ×2 (08:19→21:06)
[2018-04-14] MEDS: Isosorbide Mononitrate 20 MG TAB PO SCH ×2 (08:20→21:07)
[2018-04-14] MEDS: Potassium Chloride 20 MEQ TAB PO SCH (08:20)
[2018-04-14] MEDS: Furosemide 40 MG TAB PO SCH ×2 (08:20→14:11)
[2018-04-14] MEDS: cloNIDine 0.1 MG TAB PO SCH ×2 (08:20→21:06)
[2018-04-14] MEDS: Alogliptin 6.25 MG TAB PO SCH (08:20)
[2018-04-14] MEDS: Carvedilol 6.25 MG TAB PO SCH ×2 (08:20→21:06)
[2018-04-14] MEDS: Lantiseptic Ointment 130 GM JAR TOP SCH ×2 (08:20→21:09)
--- NOTE | 2018-04-14 11:23 | PRG ---
DATE OF SERVICE: 04/14/2018 SUBJECTIVE: The patient had a good night. He is up sitting in his chair this morning, has not yet h ad his physical therapy. He is getting ready for breakfast. His said he is doing well, and the y are anticipating being discharged home on 04/16/2018. She did ask for a prescription for a walker to assist with his ambulation at home. This was given. OBJECTIVE: GENERAL: The patient is sitting up in a chair, smiling, looks very content, very comfortable. VITAL SIGNS: Shows a temperature 98.1, pulse 60, respirations 22, O2 sat 94% on room air, blood pressure 153/69. His weight is 166. LUNGS: Clear. HEART: Regular rate. EXTREMITIES: Legs look better. There is only trace edema. He is wearing his knee high support hose . SKIN: The lesion on the right frontal area of the scalp is healing well. LABORATORY DATA: FBS this morning was 129. ASSESSMENT: 1. Generalized weakness and deconditioning. A. Secondary to the recent acute hospitalization for congestive heart failure. B. Complicated by gait abnormality from the Parkinson's. C. Increased fall risk. D. Improved, walking up to 300 feet with a rolling walker and standby assistance. Still requires st andby assistance just to help prevent any imbalance which he has difficulty correcting due to the Par kinson's as of 04/14/2018. 2. Hospitalized at [facility] from 03/22/2018 until 03/29/2018 for acute on chronic diast olic congestive heart failure. 3. Diastolic congestive heart failure. A. Complicated by recent acute on chronic congestive failure, requiring hospitalization that has imp roved. B. Echocardiogram shows ejection fraction of 45%-50% with severe tricuspid regurgitation and moderat e mitral regurgitation and some restrictive filling with diastolic dysfunction. C. No evidence of acute congestive heart failure as of 04/14/2018. 4. Chronic right heart failure. A. Complicated by severe tricuspid regurgitation and peripheral edema that has improved. B. The weight is stable at 166. The edema in the lower extremity is much better and only trace pascual ins as of 04/14/2018. 5. Diabetes, type 2. A. Controlled with a hemoglobin A1c of 6.2. B. Well controlled on oral agent alogliptin as of 04/09/2018. 6. Hypertension. A. Controlled as of 04/10/2018. 7. Coronary artery disease, status post coronary artery bypass x2, 2012. 8. Parkinson's disease. A. Stable as of 04/14/2018. 9. Alzheimer disease. 10. Chronic kidney disease, stage 3. A. GFR has declined from 33 to 29 with a rise in BUN from 36 to 38 as of 04/05/2018. B. GFR is 28 as of 04/12/2018. 11. Chronic normocytic anemia. A. Hemoglobin 9.1 as of 04/08/2018. 12. Hypothyroidism. 14. Hyperlipidemia. 15. Code status: DNR. 16. Status post excision of a skin cancer on the right frontal area of the scalp in early 02/28/2018 . A. Gradually healing by secondary intention as of 04/14/2018. 17. Insomnia with nighttime awakening. A. Remains controlled as of 04/14/2018. 18. Stage 1 decubitus on the sacrum. PLAN: Continue PT, OT, given patient's a prescription for a walker with wheels.
[2018-04-14] MEDS: Simvastatin 20 MG TAB PO SCH (21:07)
[2018-04-14] MEDS: traZODone HCl 50 MG TAB PO SCH (21:08)
[2018-04-15 05:26] LABS: Anion Gap 16 mmol/L (10-20); BUN (Urea Nitrogen) 28 mg/dL (8.4-25.7); Calc. Creatinine Clearance 27 mL/min (70-130); Calcium 8.5 mg/dL (7.8-10.44); Carbon Dioxide 25 mmol/L (23-31); Chloride 103 mmol/L (98-107); Estimated GFR-MDRD 31; Glucose 112 mg/dL (83-110); Potassium 3.6 mmol/L (3.5-5.1); Sodium 140 mmol/L (136-145)
[2018-04-15] MEDS: Levothyroxine Sodium 100 MCG TAB PO SCH (05:27)
[2018-04-15 05:28] LABS: #Basophils 0.1 thou/uL (0.0-0.2); #Eosinphils 0.1 thou/uL (0.0-0.7); #Lymphocytes 1.3 thou/uL (1.20-3.40); #Monocytes 0.6 thou/uL (0.11-0.59); #Neutrophils 3.4 thou/uL (1.40-6.50); %Basophils 1.3 % (0.0-1.0); %Eosinophils 1.4 % (0.0-10.0); %Lymphocytes 23.7 % (21.0-51.0); %Monocytes 10.6 % (0.0-10.0); %Neutrophils 62.9 % (42.0-75.0); Hemoglobin 9.8 g/dL (14.0-18.0); Mean Corpuscular HGB CONC 32.9 g/dL (32.0-36.0); Mean Corpuscular Hemoglobin 27.3 pg (27.0-31.0); Mean Corpuscular Volume 83.1 fL (78.0-98.0); Mean Platelet Volume 6.4 fL (7.4-10.4); Platelet Count 163 thou/uL (130-400); RBC Distribution Width 14.4 % (11.5-14.5); Red Blood Cell (RBC) Count 3.57 mill/uL (4.70-6.10); White Blood Cell (WBC) Count 5.5 thou/uL (4.8-10.8)
[2018-04-15] MEDS: Carbidopa/Levodopa 25-100 mg Tablet PO SCH ×2 (08:10→20:51)
[2018-04-15] MEDS: Isosorbide Mononitrate 20 MG TAB PO SCH ×2 (08:11→20:52)
[2018-04-15] MEDS: hydrALAZINE 25 MG TAB PO SCH ×3 (08:11→20:52)
[2018-04-15] MEDS: Alogliptin 6.25 MG TAB PO SCH (08:11)
[2018-04-15] MEDS: Potassium Chloride 20 MEQ TAB PO SCH (08:11)
[2018-04-15] MEDS: Amlodipine 5 MG TAB PO SCH (08:12)
[2018-04-15] MEDS: Aspirin 81 mg Enteric Coated Tablet PO SCH (08:12)
[2018-04-15] MEDS: cloNIDine 0.1 MG TAB PO SCH ×2 (08:12→20:52)
[2018-04-15] MEDS: Furosemide 40 MG TAB PO SCH ×3 (08:12→16:02)
[2018-04-15] MEDS: Lantiseptic Ointment 130 GM JAR TOP SCH ×2 (08:13→20:54)
[2018-04-15] MEDS: Carvedilol 6.25 MG TAB PO SCH ×2 (08:13→20:52)
[2018-04-15] MEDS: Enoxaparin Sodium 30 MG/0.3 ML SYRINGE SC SCH (08:13)
--- NOTE | 2018-04-15 12:10 | PRG ---
DATE OF SERVICE: 04/15/2018 SUBJECTIVE: The patient is doing better. He is sleeping well at night. His physical therapy is goi ng well. He is walking further. He is exercising on a NuStep that operates his legs and arms with h is efforts. He balance a little better and just with someone standing by him, he does very well. OBJECTIVE: GENERAL: The patient is sitting up on the NuStep operating the pedals and the arm controls. He appe ars very comfortable in no distress. His weight is 166. VITAL SIGNS: His temperature is 97.9, pulse 79, blood pressure was 182/87, earlier 161/77, pulse 22, O2 sat 94% on room air. LUNGS: Clear. HEART: Regular rate. EXTREMITIES: Trace edema. The legs look better. SKIN: The lesion on the right frontal area of the scalp, some of the eschar has come off, overall th e wound is a little smaller and the base still has a little small yellowish eschar. No surrounding e rythema. Wound is healing well. LABORATORY DATA: His FBS this morning is 112. Sodium 140, potassium 3.6, BUN 28, creatinine 2.06, G FR 31, improved from 28 last visit. H&H is 9.8 and 29.7, white cell count 5500 with 63% segs, 24% ly mphocytes, and platelet count of 163,000. ASSESSMENT: 1. Generalized weakness and deconditioning. A. Secondary to the recent acute hospitalization for congestive heart failure. B. Complicated by gait abnormality from the Parkinson's. C. Increased fall risk. D. Improved, walking up to 300 feet with a rolling walker and standby assistance. Still requires st and assistance just to help prevent any imbalance which he has difficulty correcting due to the Par kinson's as of 04/15/2018. 2. Hospitalized at [facility] from 03/22/2018 until 03/29/2018 for acute on chronic diast olic congestive heart failure. 3. Diastolic congestive heart failure. A. Complicated by recent acute on chronic congestive failure, requiring hospitalization that has imp roved. B. Echocardiogram shows ejection fraction of 45%-50% with severe tricuspid regurgitation and moderat e mitral regurgitation and some restrictive filling with diastolic dysfunction. C. No evidence of acute congestive heart failure as of 04/15/2018. 4. Chronic right heart failure. A. Complicated by severe tricuspid regurgitation and peripheral edema that has improved. B. The weight is stable at 166. The edema in the lower extremity is much better and only trace pascual ins as of 04/14/2018. 5. Diabetes, type 2. A. Controlled with a hemoglobin A1c of 6.2. B. Well controlled on oral agent alogliptin as of 04/09/2018. 6. Hypertension. A. Controlled as of 04/10/2018. 7. Coronary artery disease, status post coronary artery bypass x2, 2012. 8. Parkinson's disease. A. Stable as of 04/15/2018. 9. Alzheimer disease. 10. Chronic kidney disease, stage 3. A. GFR has declined from 33 to 29 with a rise in BUN from 36 to 38 as of 04/05/2018. B. GFR is improved from 28-31 as of 04/15/2018. 11. Chronic normocytic anemia. A. Hemoglobin has improved to 9.8 as of 04/15/2018. 12. Hypothyroidism. 14. Hyperlipidemia. 15. Code status: DNR. 16. Status post excision of a skin cancer on the right frontal area of the scalp in early 02/28/2018 . A. Gradually healing by secondary intention as of 04/14/2018. 17. Insomnia with nighttime awakening. A. Remains controlled as of 04/15/2018. 18. Stage 1 decubitus on the sacrum. A. Resolved as of 04/15/2018. PLAN: The patient is doing very well. Continue physical therapy and planning discharge in the [facility].
[2018-04-15] MEDS: traZODone HCl 50 MG TAB PO SCH (20:53)
[2018-04-15] MEDS: Simvastatin 20 MG TAB PO SCH (20:53)
[2018-04-16] MEDS: Levothyroxine Sodium 100 MCG TAB PO SCH (05:44)
[2018-04-16 07:51] VITALS: TEMP 97.9
[2018-04-16] MEDS: Carvedilol 6.25 MG TAB PO SCH (08:57)
[2018-04-16] MEDS: Alogliptin 6.25 MG TAB PO SCH (08:57)
[2018-04-16] MEDS: Isosorbide Mononitrate 20 MG TAB PO SCH (08:57)
[2018-04-16] MEDS: Aspirin 81 mg Enteric Coated Tablet PO SCH (08:57)
[2018-04-16] MEDS: Amlodipine 5 MG TAB PO SCH (08:57)
[2018-04-16] MEDS: Carbidopa/Levodopa 25-100 mg Tablet PO SCH (08:57)
[2018-04-16] MEDS: Potassium Chloride 20 MEQ TAB PO SCH (08:57)
[2018-04-16] MEDS: Enoxaparin Sodium 30 MG/0.3 ML SYRINGE SC SCH (08:58)
[2018-04-16] MEDS: Furosemide 40 MG TAB PO SCH (08:58)
[2018-04-16] MEDS: cloNIDine 0.1 MG TAB PO SCH (08:58)
[2018-04-16] MEDS: hydrALAZINE 25 MG TAB PO SCH ×2 (08:58→14:03)
[2018-04-16] MEDS: Lantiseptic Ointment 130 GM JAR TOP SCH (08:58)
[2018-04-16 08:59] VITALS: BP 181/87
--- NOTE | 2018-04-16 15:54 | DIS ---
DATE OF ADMISSION: 03/29/2018 DATE OF DISCHARGE: 04/16/2018 FINAL DIAGNOSES: 1. Generalized weakness and deconditioning. A. Secondary to the recent acute hospitalization for congestive heart failure. B. Complicated by gait abnormality from the Parkinson's. C. Increased fall risk. D. Improved, walking up to 300 feet with a rolling walker and standby assistance. Still requires st andby assistance just to help prevent any imbalance which he has difficulty correcting due to the Par kinson's as of 04/16/2018. 2. Hospitalized at [facility] from 03/22/2018 until 03/29/2018 for acute on chronic diast olic congestive heart failure. 3. Diastolic congestive heart failure. A. Complicated by recent acute on chronic congestive failure, requiring hospitalization that has imp roved. B. Echocardiogram shows ejection fraction of 45%-50% with severe tricuspid regurgitation and moderat e mitral regurgitation and some restrictive filling with diastolic dysfunction. C. No evidence of acute congestive heart failure as of 04/16/2018. 4. Chronic right heart failure. A. Complicated by severe tricuspid regurgitation and peripheral edema that has improved. B. Weight down to 165, still has 1+ edema in the lower extremity as of 04/16/2018. 5. Diabetes, type 2. A. Controlled with a hemoglobin A1c of 6.2. B. Well controlled on oral agent alogliptin as of 04/09/2018. 6. Hypertension. A. Controlled as of 04/10/2018. 7. Coronary artery disease, status post coronary artery bypass x2, 2012. 8. Parkinson's disease. A. Stable as of 04/15/2018. 9. Alzheimer disease. 10. Chronic kidney disease, stage 3. A. GFR has declined from 33 to 29 with a rise in BUN from 36 to 38 as of 04/05/2018. B. GFR is improved from 28-31 as of 04/15/2018. 11. Chronic normocytic anemia. A. Hemoglobin has improved to 9.8 as of 04/15/2018. 12. Hypothyroidism. 14. Hyperlipidemia. 15. Code status: DNR. 16. Status post excision of a skin cancer on the right frontal area of the scalp in early 02/28/2018 . A. Gradually healing by secondary intention as of 04/14/2018. 17. Insomnia with nighttime awakening. A. Remains controlled as of 04/15/2018. 18. Stage 1 decubitus on the sacrum. A. Resolved as of 04/15/2018. SUMMARY: The patient is an 88-year-old white male who has a history of hypertension, coronary artery disease, diastolic dysfunction, Parkinson's disease, and Alzheimer's dementia. He lives at home wit h his who assists him with his ADLs. He is usually ambulatory for short distances and able to a ssist with dressing and bathing and feeding himself. He is usually continent of urine and stools. Wilner meza was hospitalized at [facility] from 03/22/2018 until 03/29/2018 for acute on chronic jessica stolic congestive heart failure with some demand ischemia, but no evidence of acute myocardial infarc tion. He was treated with diuresis with an admission weight of 167 dropping to a discharge weight of 155. He had been managed with a low salt diet and fluid restriction of 1-1/2 liters per day. His e chocardiogram showed an ejection fraction 45%-50% with posterior hypokinesis of the left ventricle. His IVC was dilated showing evidence of fluid overload and severe tricuspid regurgitation. While in the hospital, his code status changed from FULL CODE to DNR. He was left markedly debilitated with m arked decline in his strength and functional capabilities. He was transferred to [facility] on 03/29/2018 for the severe deconditioning, weakness and for physical therapy and continued management of his fluids. HOSPITAL COURSE: The patient was admitted to [facility] on 03/29/2018. He was kept on his usu al medication for his diabetes. He was monitored. His hemoglobin A1c showed that he was good contro l with hemoglobin A1c of 6.2 on 03/30/2018. His FBS were running higher than optimal. He had been o n a sliding scale. This was switched to an oral agent using alogliptin 6.25 mg daily with excellent response and good control of his fasting blood sugars, physical therapy work with patient and patient did very well, showed marked improvement with ability to walk up to 300 feet with his rolling walker and just standby assistance. He did have trouble with his balance and rising himself that was apt t o occur and transfers and on turning, both with standby assistance, this was easily corrected. His a bility to transfer also gradually improved. During his hospitalization, his weight on admission was 167, had some weights at 157 that I think were inaccurate, further weights show that he usually was a round 165. It did rise to 168 but on discharge weight was 165. During the hospitalization, he had n o evidence of any acute congestive heart failure on his chronic diastolic congestive heart failure. He was left on the fluid restriction. He did accumulate more fluid and some increase in his weight d uring the hospitalization for which his furosemide was increased to 40 mg b.i.d. to try to prevent th e fluid overload. He has severe right heart dysfunction with severe tricuspid regurgitation, dilated inferior vena cava and the peripheral edema. This has been managed with elevation of the knee high support hose and with diuretics. His renal function was stable on admission. His GFR was 32, on dis charge it was 31. His condition gradually improved. His lungs remained clear. The heart remains re gular rate. His diabetes was under good control. His Alzheimer dementia was stable. He did very we ll from behavioral issues with his present who was able to very easily redirect him. The patien t's Parkinson's disease was stable. The did notice that the Sinemet seemed to increase his acti vity and sleeplessness initially for a few hours, it helped with the sleep and then after 4 hours, he is awake and seemed a little bit wrapped up. His Sinemet was decreased to twice a day and per her r equest, the last dose was given at bedtime because for a few hours it helped him to sleep. He did aw aken in the night. At home, he has been using trazodone which worked well. This was restarted with him receiving 25 mg at bedtime along with the Sinemet and with this regimen, he slept throughout the night, did not have a carryover effect. The patient had a wound on the right frontal area of his sca lp from an excision of a basal cell carcinoma. Initially this was a little red and appeared to have a little mild infection for which he was on Keflex. The redness resolved and the wound was gradually healing by secondary intention. The patient's condition improved and on 04/16/2018, his condition w as such, felt like he could be managed safely at home, his was comfortable trying to manage him there. He felt like his general strength and gait had markedly improved. Arrangements will be made for home health with [facility] to see him and also arrange in-home PT and OT. We will utilize his walker with wheels to help with ambulation. DIET: No added salt diet, fluid restricted to 1-1/2 liters per 24 hours. ACTIVITIES: Ambulate with a walker with wheels. We will check glucometers daily. [facility] will see patient to assist with his care and arrange for in-home PT and OT. MEDICATIONS: Acetaminophen 325 mg 2 every 4 hours as needed, alogliptin 6.25 mg daily. I have writt en for this and also sent a preauthorization request. The approval of this is of being awaited, amlo dipine 5 mg daily, aspirin 81 mg daily, Sinemet 25/100 one in the morning and 1 at bedtime, carvedilo l 6.25 mg b.i.d., clonidine 0.1 mg b.i.d., furosemide 40 mg b.i.d., hydralazine 25 mg three t.i.d., i sosorbide dinitrate 40 mg b.i.d. Lantiseptic may be applied to the bottom area b.i.d. as needed, lev othyroxine 100 mcg daily, Imodium 2 mg b.i.d. as needed, KCl extended release 20 mEq daily, simvastat in 10 mg daily, trazodone 50 mg a half a tablet at bedtime. FOLLOW UP: The patient will be seen in followup in my office in 2 weeks with a basic metabolic panel and CBC. The patient due to see his traffic coordinator in 2 weeks. CODE STATUS: DNR.
== END 2018-04-16 14:15 | disposition home health service (06) | DRG 948 ==
LOC: MADMS 16:59
PROVIDERS: ADMIT Family Medicine; ATTEND Family Medicine
DX: R53.1 Weakness (principal); I24.8 Other forms of acute ischemic heart disease; F02.81 Dementia in other diseases classified elsewhere, unspecified severity, with behavioral disturbance; I13.0 Hypertensive heart and chronic kidney disease with heart failure and stage 1 through stage 4 chronic kidney disease, or unspecified chronic kidney disease; I50.32 Chronic diastolic (congestive) heart failure; T81.4XXA Infection following a procedure, initial encounter; I25.10 Atherosclerotic heart disease of native coronary artery without angina pectoris; G20 Parkinson's disease; E03.9 Hypothyroidism, unspecified; E11.22 Type 2 diabetes mellitus with diabetic chronic kidney disease; N18.3 Chronic kidney disease, stage 3 (moderate); I08.3 Combined rheumatic disorders of mitral, aortic and tricuspid valves; Z66 Do not resuscitate; Z95.1 Presence of aortocoronary bypass graft; I48.0 Paroxysmal atrial fibrillation; E78.5 Hyperlipidemia, unspecified; G30.9 Alzheimer's disease, unspecified; Z85.828 Personal history of other malignant neoplasm of skin; K57.90 Diverticulosis of intestine, part unspecified, without perforation or abscess without bleeding; R26.9 Unspecified abnormalities of gait and mobility; Z91.81 History of falling; I50.812 Chronic right heart failure; G47.00 Insomnia, unspecified; L89.151 Pressure ulcer of sacral region, stage 1
CPT/HCPCS: 36415; 36416; 80048; 80053; 83036; 84443; 85025; G8978-GP-CL; G8979-GP-CJ; G8987-GO-CL; G8988-GO-CJ; G8996-GN-CJ; G8997-GN-CJ; J1650

== ENCOUNTER 2018-04-27 15:08 | Outpatient (CLI) | payer MEDICARE ==
[2018-04-27 16:04] LABS: Anion Gap 21 mmol/L (10-20); BUN (Urea Nitrogen) 38 mg/dL (8.4-25.7); Calc. Creatinine Clearance 0 mL/min (70-130); Calcium 8.8 mg/dL (7.8-10.44); Carbon Dioxide 22 mmol/L (23-31); Chloride 102 mmol/L (98-107); Estimated GFR-MDRD 26; Glucose 79 mg/dL (83-110); Potassium 3.7 mmol/L (3.5-5.1); Sodium 141 mmol/L (136-145)
[2018-04-27 16:05] LABS: #Basophils 0.1 thou/uL (0.0-0.2); #Eosinphils 0.1 thou/uL (0.0-0.7); #Monocytes 0.5 thou/uL (0.11-0.59); #Neutrophils 3.5 thou/uL (1.40-6.50); %Basophils 1.5 % (0.0-1.0); %Lymphocytes 19.7 % (21.0-51.0); %Monocytes 10.2 % (0.0-10.0); %Neutrophils 66.7 % (42.0-75.0); Hemoglobin 10.5 g/dL (14.0-18.0); Mean Corpuscular HGB CONC 32.5 g/dL (32.0-36.0); Mean Corpuscular Hemoglobin 26.9 pg (27.0-31.0); Mean Corpuscular Volume 82.9 fL (78.0-98.0); Mean Platelet Volume 6.3 fL (7.4-10.4); Platelet Count 160 thou/uL (130-400); RBC Distribution Width 13.7 % (11.5-14.5); White Blood Cell (WBC) Count 5.2 thou/uL (4.8-10.8)
== END 2018-04-27 15:09 | disposition home or self-care (01) ==
LOC: MADLAB 15:08
PROVIDERS: ATTEND Family Medicine
DX: G20 Parkinson's disease (principal); F03.90 Unspecified dementia, unspecified severity, without behavioral disturbance, psychotic disturbance, mood disturbance, and anxiety; R03.0 Elevated blood-pressure reading, without diagnosis of hypertension
CPT/HCPCS: 80048; 85025

== ENCOUNTER 2018-05-05 13:11 | Outpatient (CLI) | payer MEDICARE ==
[2018-05-05 14:24] LABS: Bilirubin Negative (Negative); Blood, Urine Negative (Negative); Clarity Clear (Clear); Glucose, Urine (Dipstick) Negative (Negative); Leukocyte Trace (Negative); Nitrite Negative (Negative); Protein, Urine (Dipstick) 100 mg/dL (Neg-Trace); Specific Gravity, Urine 1.015 (1.005-1.030); Urobilinogen 0.2 mg/dL (0.2-1.0)
[2018-05-05 14:31] LABS: Bacteria/HPF Rare-Few HPF (None Seen); RBC/HPF 0-3 HPF (0-3); Squamous Epithelial 0-3 HPF (0-3); WBC/HPF 0-3 HPF (0-3)
== END 2018-05-05 13:12 | disposition home or self-care (01) ==
LOC: MADLABBHPM 13:11
PROVIDERS: ATTEND Family Medicine
DX: R39.9 Unspecified symptoms and signs involving the genitourinary system (principal)
CPT/HCPCS: 81001; 87086

== ENCOUNTER 2018-05-31 07:32 | Outpatient (CLI) | payer MEDICARE ==
--- NOTE | 2018-05-31 10:23 | ULT ---
RENAL ULTRASOUND: HISTORY: Chronic renal disease. FINDINGS: The patient was not able to fully cooperate for this examination. Real-time imaging of the right and left kidneys was performed. The right kidney measures approximate ly 8.1 cm in size and the left kidney 9.4 cm. There are bilateral renal cysts present. On the right side there is a 1.7 cm cyst. There are several cysts on the left, with one of the larger cysts mahad uring 2.5 x 2.8 cm and another cyst in the upper pole region measuring 4 cm in maximum diameter. No obstruction. There is thinning to the cortex of both kidneys and increased echogenicity. The bladder region appears unremarkable. The patient was unable to void for the examination. IMPRESSION: 1. Bilateral renal cysts. 2. Thinning to the cortex of both kidneys with increased echogenicity suggesting underlying medial r enal parenchymal disease. No obstruction or suspicious masses. POS: SADIE
== END 2018-05-31 07:33 | disposition home or self-care (01) ==
LOC: MADULT 07:32
PROVIDERS: ATTEND Internal Medicine Nephrology
DX: N18.4 Chronic kidney disease, stage 4 (severe) (principal); N28.1 Cyst of kidney, acquired; N28.89 Other specified disorders of kidney and ureter
CPT/HCPCS: 76770